=== PATIENT | male | born 1945 | race Caucasian/White ===

== ENCOUNTER 2020-03-21 10:43 | Outpatient (REF) | payer MEDICARE, SELFPAY ==
[2020-03-21 14:11] LABS: MANUAL DIFF FLAG NO
[2020-03-21 14:24] LABS: Basophils Absolute Auto 0.1 X10*3/uL (0.0-0.2); Basophils Percent Auto 1.5 % (0-2); Eosinophils Absolute Auto 0.8 X10*3/uL (0.0-0.4); Eosinophils Percent Auto 11.2 % (0-4); Hematocrit 40.5 % (42-52); Hemoglobin 13.6 g/dl (14.0-18.0); Imm Gran Abs Auto 0.03 X10*3/uL (0.00-0.03); Imm Gran Pct Auto 0.4 % (0.0-0.4); Lymphocytes Absolute Auto 1.2 X10*3/uL (1.2-4.9); Lymphocytes Percent Auto 17.9 % (20-40); Mean Corpuscular HGB Conc 33.6 g/dl (31.0-36.0); Mean Corpuscular Hemoglobin 31.8 pg (27.0-33.0); Mean Corpuscular Volume 94.6 fL (80-98); Monocytes Absolute Auto 0.8 X10*3/uL (0.1-1.2); Monocytes Percent Auto 11.4 % (2-11); Neutrophils Percent Auto 57.6 % (45-73); Platelet Count 204 X10*3/uL (160-400); Red Blood Count 4.28 X10*6/uL (4.60-5.80); Red Cell Distribution Width 13.2 % (11.0-16.0); White Blood Count 6.9 X10*3/uL (4.8-10.8)
[2020-03-21 14:47] LABS: Alanine Aminotransferase 14 U/L (0-40); Albumin Level 4.2 g/dL (3.5-5.0); Alkaline Phosphatase 71 U/L (39-117); Anion Gap 15 (12-20); Aspartate Amino Transferase 15 U/L (5-37); Bilirubin Total 0.4 mg/dL (0.0-1.0); Blood Urea Nitrogen 19 mg/dL (9-16); C Reactive Protein 0.93 mg/dL (< or = 0.50); Carbon Dioxide 24 mmol/L (22-29); Chloride 104 mmol/L (96-108); Estimated Glomerular Filt Rate > 60; Glucose Random 141 mg/dL (60-115); Potassium 4.6 mmol/l (3.3-5.1); Sodium 138 mmol/L (135-145); Total Protein 6.7 g/dL (6.5-8.0)
[2020-03-21 15:00] LABS: Uric Acid 9.2 mg/dL (3.4-7.0)
[2020-03-21 15:21] LABS: Creatinine Urine 14.81 mg/dL; Microalbum/Creatinine Ratio Ur 74.2 ug/mg cr
[2020-03-21 15:34] LABS: Estimated Average Glucose 148 mg/dL; Hemoglobin A1c % 6.8 %
== END 2020-03-21 10:44 | disposition home or self-care (01) ==
LOC: HO.10HDL 10:43
PROVIDERS: Visit Provider Internal Medicine
DX: J44.9 Chronic obstructive pulmonary disease, unspecified (principal); E11.22 Type 2 diabetes mellitus with diabetic chronic kidney disease; I12.9 Hypertensive chronic kidney disease with stage 1 through stage 4 chronic kidney disease, or unspecified chronic kidney disease; N18.9 Chronic kidney disease, unspecified; M10.9 Gout, unspecified
CPT/HCPCS: 36415; 80053; 82043; 83036; 84550; 85025; 86140

== ENCOUNTER 2020-03-24 09:28 | Outpatient (REF) | payer SELFPAY | END 2020-03-24 09:29 | disposition home or self-care (01) | LOC: HO.HAP 09:28 | PROVIDERS: PCP Internal Medicine; Referring Provider Internal Medicine; Visit Provider Internal Medicine | DX: Z13.89 Encounter for screening for other disorder (principal) | CPT/HCPCS: 92700 ==

== ENCOUNTER 2020-06-22 10:32 | Outpatient (REF) | payer MEDICARE, SELFPAY ==
[2020-06-22 13:37] LABS: MANUAL DIFF FLAG NO
[2020-06-22 13:45] LABS: Basophils Absolute Auto 0.1 X10*3/uL (0.0-0.2); Basophils Percent Auto 1.4 % (0-2); Eosinophils Absolute Auto 0.8 X10*3/uL (0.0-0.4); Eosinophils Percent Auto 10.6 % (0-4); Hematocrit 42.1 % (42-52); Hemoglobin 14.6 g/dl (14.0-18.0); Imm Gran Abs Auto 0.04 X10*3/uL (0.00-0.03); Imm Gran Pct Auto 0.5 % (0.0-0.4); Lymphocytes Absolute Auto 1.3 X10*3/uL (1.2-4.9); Mean Corpuscular HGB Conc 34.7 g/dl (31.0-36.0); Mean Corpuscular Hemoglobin 32.6 pg (27.0-33.0); Mean Platelet Volume 10.6 fL (9.4-12.4); Monocytes Absolute Auto 0.9 X10*3/uL (0.1-1.2); Monocytes Percent Auto 11.1 % (2-11); Neutrophils Absolute Auto 4.7 X10*3/uL (2.0-8.3); Neutrophils Percent Auto 59.4 % (45-73); Platelet Count 187 X10*3/uL (160-400); Red Blood Count 4.48 X10*6/uL (4.60-5.80); Red Cell Distribution Width 13.2 % (11.0-16.0); White Blood Count 7.8 X10*3/uL (4.8-10.8)
[2020-06-22 13:54] LABS: Estimated Average Glucose 160 mg/dL; Hemoglobin A1c % 7.2 %
[2020-06-22 14:14] LABS: Alanine Aminotransferase 16 U/L (0-40); Albumin Level 4.3 g/dL (3.5-5.0); Alkaline Phosphatase 66 U/L (39-117); Anion Gap 16 (12-20); Aspartate Amino Transferase 16 U/L (5-37); Bilirubin Total 0.6 mg/dL (0.0-1.0); Blood Urea Nitrogen 19 mg/dL (9-16); Calcium 9.5 mg/dL (8.4-10.2); Carbon Dioxide 27 mmol/L (22-29); Chloride 103 mmol/L (96-108); Estimated Glomerular Filt Rate 57; Glucose Random 175 mg/dL (60-115); Potassium 4.7 mmol/L (3.3-5.1); Sodium 141 mmol/L (135-145)
== END 2020-06-22 10:33 | disposition home or self-care (01) ==
LOC: HO.10HDL 10:32
PROVIDERS: Visit Provider Internal Medicine
DX: J44.9 Chronic obstructive pulmonary disease, unspecified (principal); I10 Essential (primary) hypertension; E11.9 Type 2 diabetes mellitus without complications
CPT/HCPCS: 36415; 80053; 83036; 85025

== ENCOUNTER → 2020-07-25 12:53 | Outpatient (BNVA) | payer MEDICARE, SELFPAY | PROVIDERS: PCP Internal Medicine; Visit Provider Nurse Practitioner Family | DX: I42.9 Cardiomyopathy, unspecified (principal); I10 Essential (primary) hypertension; E11.9 Type 2 diabetes mellitus without complications; Z95.0 Presence of cardiac pacemaker; Z79.899 Other long term (current) drug therapy | CPT/HCPCS: 99212 ==

== ENCOUNTER 2020-10-20 06:50 | Outpatient (REF) | payer MEDICARE, SELFPAY ==
[2020-10-20 11:15] LABS: MANUAL DIFF FLAG NO
[2020-10-20 11:26] LABS: Basophils Absolute Auto 0.1 X10*3/uL (0.0-0.2); Basophils Percent Auto 1.2 % (0-2); Eosinophils Absolute Auto 0.7 X10*3/uL (0.0-0.4); Eosinophils Percent Auto 8.7 % (0-4); Hematocrit 42.5 % (42-52); Hemoglobin 14.2 g/dl (14.0-18.0); Imm Gran Abs Auto 0.03 X10*3/uL (0.00-0.03); Imm Gran Pct Auto 0.4 % (0.0-0.4); Lymphocytes Absolute Auto 1.3 X10*3/uL (1.2-4.9); Lymphocytes Percent Auto 17.2 % (20-40); Mean Corpuscular HGB Conc 33.4 g/dl (31.0-36.0); Mean Corpuscular Hemoglobin 32.9 pg (27.0-33.0); Mean Corpuscular Volume 98.4 fL (80-98); Mean Platelet Volume 10.5 fL (9.4-12.4); Monocytes Absolute Auto 0.8 X10*3/uL (0.1-1.2); Monocytes Percent Auto 10.4 % (2-11); Neutrophils Absolute Auto 4.7 X10*3/uL (2.0-8.3); Neutrophils Percent Auto 62.1 % (45-73); Platelet Count 182 X10*3/uL (160-400); Red Blood Count 4.32 X10*6/uL (4.60-5.80); Red Cell Distribution Width 13.2 % (11.0-16.0); White Blood Count 7.5 X10*3/uL (4.8-10.8)
[2020-10-20 12:10] LABS: Glucose Urine UA NEG (NEG); Leukocyte Esterase Urine NEG (NEG); Nitrite Urine NEG (NEG); Specific Gravity - Urine <= 1.005 (1.005-1.025); Urine Blood NEG (NEG); Urine Ketones NEG (NEG); Urine Protein NEG (NEG-TRACE)
[2020-10-20 12:12] LABS: Appearance Urine CLEAR; Color Urine YELLOW
[2020-10-20 12:18] LABS: Alanine Aminotransferase 12 U/L (0-40); Albumin Level 4.1 g/dL (3.5-5.0); Alkaline Phosphatase 65 U/L (39-117); Anion Gap 16 (12-20); Aspartate Amino Transferase 20 U/L (5-37); Bilirubin Total 0.6 mg/dL (0.0-1.0); Blood Urea Nitrogen 20 mg/dL (9-16); Calcium 9.4 mg/dL (8.4-10.2); Carbon Dioxide 23 mmol/L (22-29); Chloride 103 mmol/L (96-108); Cholesterol 150 mg/dL; Estimated Glomerular Filt Rate > 60; Glucose Fasting 159 mg/dL (60-99); HDL Cholesterol 40 mg/dL; LDL Cholesterol Calculated 82 mg/dl; Potassium 4.6 mmol/L (3.3-5.1); Sodium 137 mmol/L (135-145); Total Protein 6.8 g/dL (6.5-8.0); Triglycerides 142 mg/dL
[2020-10-20 12:24] LABS: Estimated Average Glucose 160 mg/dL; Hemoglobin A1c % 7.2 %
[2020-10-20 12:33] LABS: Creatinine Urine 36.64 mg/dL; Microalbum/Creatinine Ratio Ur 158.2 ug/mg cr
[2020-10-20 12:39] LABS: PSA,Total (Free>4and<10) 0.22 ng/mL (0.00-4.00)
== END 2020-10-20 06:51 | disposition home or self-care (01) ==
LOC: HO.HMGCLDS 06:50
PROVIDERS: PCP Internal Medicine; Visit Provider Internal Medicine
DX: J44.9 Chronic obstructive pulmonary disease, unspecified (principal); E11.22 Type 2 diabetes mellitus with diabetic chronic kidney disease; N18.9 Chronic kidney disease, unspecified; Z85.46 Personal history of malignant neoplasm of prostate; Z12.5 Encounter for screening for malignant neoplasm of prostate
CPT/HCPCS: 36415; 80053; 80061; 81003; 82043; 83036; 84153; 85025

== ENCOUNTER 2021-01-24 09:06 | Outpatient (REF) | payer SELFPAY ==
--- NOTE | 2021-01-24 09:29 | MHC.AU.P13 ---
Hearing Instrument Problem Date of Visit: 01/24/21 Left Ear: Litigation Attorney Associate: Phonak Model: Orugga Q 50-P Serial Number: [id number] Repair Warranty: Battery Size: 13 Color: Silver Mireles Tubing: #2 Slim tube Type of Dome: Medium Power Dispensed By: [facility] Date of Fittin11/11/2012 Follow-Up Summary: Patient brought in left aid - broken slim tube. Cleaned hearing aids and replaced #2 left slim tube and medium power dome - amplifying clearly. Recommendations: Recommendations: Hearing instrument follow-up or maintenance as needed. Diagnosis Code(s): Primary Diagnosis: H90.3 Bilateral Sensorineural Hearing Loss Signature: Provider: ZHANNA Sorto-
== END 2021-01-24 09:07 | disposition home or self-care (01) ==
LOC: HO.HAP 09:06
PROVIDERS: Visit Provider Internal Medicine
DX: Z46.1 Encounter for fitting and adjustment of hearing aid (principal); H90.3 Sensorineural hearing loss, bilateral
CPT/HCPCS: 99499

== ENCOUNTER → 2021-01-30 12:08 | Outpatient (BNVA) | payer MEDICARE, SELFPAY | PROVIDERS: PCP Internal Medicine; Referring Provider Internal Medicine; Visit Provider Internal Medicine | DX: I42.9 Cardiomyopathy, unspecified (principal); I44.2 Atrioventricular block, complete; I10 Essential (primary) hypertension; E11.9 Type 2 diabetes mellitus without complications; Z45.018 Encounter for adjustment and management of other part of cardiac pacemaker; Z79.84 Long term (current) use of oral hypoglycemic drugs; Z79.899 Other long term (current) drug therapy | CPT/HCPCS: 93005; 99212 ==

== ENCOUNTER 2021-07-20 07:14 | Outpatient (REF) | payer MEDICARE, SELFPAY ==
[2021-07-20 11:35] LABS: MANUAL DIFF FLAG NO
[2021-07-20 11:48] LABS: Basophils Absolute Auto 0.1 X10*3/uL (0.0-0.2); Basophils Percent Auto 1.2 % (0-2); Eosinophils Absolute Auto 0.5 X10*3/uL (0.0-0.4); Hematocrit 41.5 % (42.0-52.0); Hemoglobin 14.2 g/dl (14.0-18.0); Imm Gran Abs Auto 0.04 X10*3/uL (0.00-0.03); Imm Gran Pct Auto 0.6 % (0.0-0.4); Lymphocytes Percent Auto 14.4 % (20-40); Mean Corpuscular HGB Conc 34.2 g/dl (31.0-36.0); Mean Corpuscular Hemoglobin 33.7 pg (27.0-33.0); Mean Corpuscular Volume 98.6 fL (80.0-98.0); Mean Platelet Volume 10.3 fL (9.4-12.4); Monocytes Absolute Auto 0.8 X10*3/uL (0.1-1.2); Monocytes Percent Auto 11.3 % (2-11); Neutrophils Absolute Auto 4.7 x10*3/uL (2.0-8.3); Neutrophils Percent Auto 65.5 % (45-73); Platelet Count 155 X10*3/uL (160-400); Red Blood Count 4.21 X10*6/uL (4.60-5.80); Red Cell Distribution Width 13.2 % (11.0-16.0); White Blood Count 7.2 X10*3/uL (4.8-10.8)
[2021-07-20 11:58] LABS: Estimated Average Glucose 160 mg/dL; Hemoglobin A1c % 7.2 %
[2021-07-20 12:13] LABS: Alanine Aminotransferase 24 U/L (0-40); Alkaline Phosphatase 57 U/L (39-117); Anion Gap 13 (12-20); Aspartate Amino Transferase 26 U/L (5-37); Bilirubin Total 0.6 mg/dL (0.0-1.0); Blood Urea Nitrogen 15 mg/dL (9-16); Calcium 9.7 mg/dL (8.4-10.2); Carbon Dioxide 25 mmol/L (22-29); Chloride 103 mmol/L (96-108); Estimated Glomerular Filt Rate > 60; Glucose Random 167 mg/dL (60-115); Potassium 4.7 mmol/L (3.3-5.1); Sodium 136 mmol/L (135-145); Total Protein 6.8 g/dL (6.5-8.0)
[2021-07-20 12:24] LABS: Creatinine Urine 37.75 mg/dL; Microalbum/Creatinine Ratio Ur 156.2 ug/mg cr
== END 2021-07-20 07:15 | disposition home or self-care (01) ==
LOC: HO.HMGCLDS 07:14
PROVIDERS: Visit Provider Internal Medicine
DX: E11.9 Type 2 diabetes mellitus without complications (principal); I10 Essential (primary) hypertension; J44.9 Chronic obstructive pulmonary disease, unspecified
CPT/HCPCS: 36415; 80053; 82043; 83036; 85025

== ENCOUNTER 2021-09-08 09:13 | Outpatient (REF) | payer MEDICARE, SELFPAY ==
--- NOTE | ~2021-09-08 | XR_ITS ---
EXAMINATION: XR knee RT 2V CLINICAL INFORMATION: Pain COMPARISON: None TECHNIQUE: 2 views of the knee XR/XR knee RT 2V FINDINGS/IMPRESSION: No acute fracture or dislocation. Joint spaces are maintained. Trace suprapatellar joint effusion. Soft tissues are unremarkable.
== END 2021-09-08 09:14 | disposition home or self-care (01) ==
LOC: HO.HMGCX 09:13
PROVIDERS: PCP Internal Medicine; Visit Provider Nurse Practitioner Acute Care
DX: M25.561 Pain in right knee (principal)
CPT/HCPCS: 73560

== ENCOUNTER 2021-09-14 08:46 | Outpatient (REF) | payer SELFPAY | END 2021-09-14 08:47 | disposition home or self-care (01) | LOC: HO.HAP 08:46 | PROVIDERS: Visit Provider Internal Medicine | DX: Z46.1 Encounter for fitting and adjustment of hearing aid (principal); H90.3 Sensorineural hearing loss, bilateral | CPT/HCPCS: V5267 ==

== ENCOUNTER 2021-10-24 06:20 | Outpatient (REF) | payer MEDICARE, SELFPAY ==
[2021-10-24 11:43] LABS: MANUAL DIFF FLAG NO
[2021-10-24 11:51] LABS: Basophils Absolute Auto 0.1 X10*3/uL (0.0-0.2); Basophils Percent Auto 1.1 % (0-2); Eosinophils Absolute Auto 0.6 X10*3/uL (0.0-0.4); Eosinophils Percent Auto 9.3 % (0-4); Hematocrit 38.9 % (42.0-52.0); Hemoglobin 13.3 g/dl (14.0-18.0); Imm Gran Abs Auto 0.04 X10*3/uL (0.00-0.03); Imm Gran Pct Auto 0.6 % (0.0-0.4); Lymphocytes Absolute Auto 1.1 X10*3/uL (1.2-4.9); Lymphocytes Percent Auto 16.6 % (20-40); Mean Corpuscular HGB Conc 34.2 g/dl (31.0-36.0); Mean Corpuscular Volume 99.5 fL (80.0-98.0); Mean Platelet Volume 10.5 fL (9.4-12.4); Monocytes Absolute Auto 0.8 X10*3/uL (0.1-1.2); Monocytes Percent Auto 12.7 % (2-11); Neutrophils Absolute Auto 3.8 x10*3/uL (2.0-8.3); Neutrophils Percent Auto 59.7 % (45-73); Platelet Count 182 X10*3/uL (160-400); Red Blood Count 3.91 X10*6/uL (4.60-5.80); Red Cell Distribution Width 13.4 % (11.0-16.0); White Blood Count 6.3 X10*3/uL (4.8-10.8)
[2021-10-24 11:57] LABS: Estimated Average Glucose 140 mg/dL; Hemoglobin A1c % 6.5 %
[2021-10-24 12:11] LABS: Alanine Aminotransferase 19 U/L (0-40); Alkaline Phosphatase 57 U/L (39-117); Anion Gap 11 (12-20); Aspartate Amino Transferase 19 U/L (5-37); Bilirubin Total 0.6 mg/dL (0.0-1.0); Blood Urea Nitrogen 18 mg/dL (9-16); Carbon Dioxide 27 mmol/L (22-29); Chloride 105 mmol/L (96-108); Cholesterol 143 mg/dL; Estimated Glomerular Filt Rate > 60; Glucose Fasting 146 mg/dL (60-99); HDL Cholesterol 39 mg/dL; LDL Cholesterol Calculated 74 mg/dl; Potassium 4.7 mmol/L (3.3-5.1); Sodium 138 mmol/L (135-145); Total Protein 6.7 g/dL (6.5-8.0); Triglycerides 153 mg/dL
[2021-10-24 12:40] LABS: Creatinine Urine 32.22 mg/dL; Microalbum/Creatinine Ratio Ur 176.9 ug/mg cr
== END 2021-10-24 06:21 | disposition home or self-care (01) ==
LOC: HO.HMGCLDS 06:20
PROVIDERS: Visit Provider Internal Medicine
DX: E11.9 Type 2 diabetes mellitus without complications (principal); I10 Essential (primary) hypertension; J44.9 Chronic obstructive pulmonary disease, unspecified
CPT/HCPCS: 36415; 80053; 80061; 82043; 83036; 85025

== ENCOUNTER → 2022-01-29 12:21 | Outpatient (BNVA) | payer MEDICARE, SELFPAY | PROVIDERS: PCP Internal Medicine; Referring Provider Internal Medicine; Visit Provider Internal Medicine | DX: Z45.018 Encounter for adjustment and management of other part of cardiac pacemaker (principal); I42.9 Cardiomyopathy, unspecified; I10 Essential (primary) hypertension | CPT/HCPCS: 93005; 93280 ==

== ENCOUNTER 2022-03-09 11:53 | Outpatient (REF) | payer MEDICARE, SELFPAY ==
[2022-03-09 14:07] LABS: Estimated Average Glucose 137 mg/dL; Hemoglobin A1c % 6.4 %
[2022-03-09 14:42] LABS: Alanine Aminotransferase 11 U/L (0-40); Albumin Level 4.3 g/dL (3.5-5.0); Alkaline Phosphatase 64 U/L (39-117); Anion Gap 20 (12-20); Aspartate Amino Transferase 21 U/L (5-37); Bilirubin Total 0.6 mg/dL (0.0-1.0); Blood Urea Nitrogen 18 mg/dL (9-16); Calcium 9.7 mg/dL (8.4-10.2); Carbon Dioxide 24 mmol/L (22-29); Chloride 100 mmol/L (96-108); Estimated Glomerular Filt Rate > 60; Glucose Random 132 mg/dL (60-115); Potassium 4.6 mmol/L (3.3-5.1); Sodium 139 mmol/L (135-145); Total Protein 7.2 g/dL (6.5-8.0)
== END 2022-03-09 11:54 | disposition home or self-care (01) ==
LOC: HO.10HDL 11:53
PROVIDERS: Visit Provider Internal Medicine
DX: E11.9 Type 2 diabetes mellitus without complications (principal); I10 Essential (primary) hypertension; J44.9 Chronic obstructive pulmonary disease, unspecified
CPT/HCPCS: 36415; 80053; 83036

== ENCOUNTER 2022-09-04 12:41 | Outpatient (REF) | payer MEDICARE, SELFPAY ==
[2022-09-04 13:58] LABS: MANUAL DIFF FLAG NO
[2022-09-04 14:07] LABS: Basophils Absolute Auto 0.1 X10*3/uL (0.0-0.2); Basophils Percent Auto 1.2 % (0-2); Eosinophils Absolute Auto 0.5 X10*3/uL (0.0-0.4); Eosinophils Percent Auto 6.8 % (0-4); Hematocrit 38.7 % (42.0-52.0); Hemoglobin 13.2 g/dl (14.0-18.0); Imm Gran Abs Auto 0.04 X10*3/uL (0.00-0.03); Imm Gran Pct Auto 0.5 % (0.0-0.4); Lymphocytes Absolute Auto 1.1 X10*3/uL (1.2-4.9); Lymphocytes Percent Auto 13.7 % (20-40); Mean Corpuscular HGB Conc 34.1 g/dl (31.0-36.0); Mean Corpuscular Hemoglobin 32.8 pg (27.0-33.0); Mean Platelet Volume 10.5 fL (9.4-12.4); Monocytes Absolute Auto 0.8 X10*3/uL (0.1-1.2); Neutrophils Absolute Auto 5.3 x10*3/uL (2.0-8.3); Neutrophils Percent Auto 67.8 % (45-73); Platelet Count 221 X10*3/uL (160-400); Red Blood Count 4.03 X10*6/uL (4.60-5.80); Red Cell Distribution Width 13.6 % (11.0-16.0); White Blood Count 7.8 X10*3/uL (4.8-10.8)
[2022-09-04 14:34] LABS: Alanine Aminotransferase 12 U/L (0-40); Albumin Level 4.1 g/dL (3.5-5.0); Alkaline Phosphatase 62 U/L (39-117); Anion Gap 14 (12-20); Aspartate Amino Transferase 15 U/L (5-37); Bilirubin Total 0.6 mg/dL (0.0-1.0); Blood Urea Nitrogen 19 mg/dL (9-16); Calcium 9.5 mg/dL (8.4-10.2); Carbon Dioxide 29 mmol/L (22-29); Chloride 103 mmol/L (96-108); Estimated Glomerular Filt Rate > 60; Glucose Random 195 mg/dL (60-115); Potassium 4.5 mmol/L (3.3-5.1); Sodium 141 mmol/L (135-145); Total Protein 6.6 g/dL (6.5-8.0)
[2022-09-04 14:57] LABS: Estimated Average Glucose 137 mg/dL; Hemoglobin A1c % 6.4 %
[2022-09-04 16:22] LABS: Creatinine Urine 25.84 mg/dL; Microalbum/Creatinine Ratio Ur 150.9 ug/mg cr
== END 2022-09-04 12:42 | disposition home or self-care (01) ==
LOC: HO.HMGCLDS 12:41
PROVIDERS: PCP Internal Medicine; Visit Provider Internal Medicine
DX: E11.9 Type 2 diabetes mellitus without complications (principal); J44.9 Chronic obstructive pulmonary disease, unspecified; I10 Essential (primary) hypertension
CPT/HCPCS: 36415; 80053; 82043; 83036; 85025

== ENCOUNTER 2022-12-18 10:33 | Outpatient (AMB) | payer MEDICARE, SELFPAY ==
--- NOTE | 2022-12-18 10:38 | MHC.OFFVIS ---
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 Patient reports ongoing pain for a week. He states that his pain has improved as the days go on. Patient reports his pain is on the whole knee and it stays in that area. Pain is worse when using the stairs. He denies any fevers or chills. He has not had a cortisone injection. He takes Tylenol which gives him fairly good relief. He denies any locking or giving way. Allergies No Known Allergies [No Known Allergies*] Allergy (Verified 12/18/22 10:41) Medication List - Last Reconciled 12/18/22 by Sami Mcdowell MD carvedilol One and half tablet orally 2 times a day; 90 days furosemide 20 mg PO DAILY lisinopril 40 mg PO DAILY metformin 500 mg PO DAILY [facility] Medical History Cardiomyopathy Diabetes HTN (hypertension) Pacemaker Surgical History History of permanent cardiac pacemaker placement Family History Mother Father Social History Patient Tobacco Use Status: Former Tobacco user Years Smoked: >10 yr Physical Exam Vital Signs: BMI result Body Mass Index 28.4 Const Other: Well-nourished well-developed very friendly male awake alert and oriented x3 in no acute distress Extrem Other: Bilateral lower extremity examination shows good capillary refill, no skin lesions noted, normal sensation light touch Left knee examination shows a mild effusion, palpable crepitus with range of motion, mild pain with range of motion, negative Susan's test, no instability Results Reviewed Results Reviewed: X-rays of the patient's left knee taken previously show joint space narrowing, no acute bony abnormalities Assessment & Plan Assessment & Plan (1) Arthritis of left knee: Code(s): M17.12 - Unilateral primary osteoarthritis, left knee Plan Mr. Chadwick presents with left knee pain due to degenerative joint disease. I had a lengthy discussion with the patient regarding the treatment options. At this point his symptoms seem to be improving on their own. Activity modifications were discussed at length with the patient. The patient wishes to hold off on a cortisone injection for now. He will follow up with me on an as-needed basis should his symptoms not plateau at an acceptable level over the next few weeks. Feel free to call me at any time should questions regarding his orthopedic management arise. Thank you very much for asking me to see this very friendly gentleman. Coding Level of Care Code New Pt Level 2 (87927) Diagnoses Arthritis of left knee M17.12
[2022-12-18 10:43] VITALS: BMI 28.4
== END 2022-12-18 11:17 | disposition home or self-care (01) ==
PROVIDERS: PCP Internal Medicine; Visit Provider Orthopaedic Surgery
DX: M17.12 Unilateral primary osteoarthritis, left knee (principal)
CPT/HCPCS: 99202

== ENCOUNTER → 2022-12-18 10:33 | Outpatient (BNVA) | payer MEDICARE, SELFPAY | PROVIDERS: PCP Internal Medicine; Visit Provider Orthopaedic Surgery | DX: M17.12 Unilateral primary osteoarthritis, left knee (principal) | CPT/HCPCS: 99202 ==

== ENCOUNTER 2022-12-31 06:20 | Outpatient (REF) | payer MEDICARE, SELFPAY ==
[2022-12-31 11:50] LABS: MANUAL DIFF FLAG NO
[2022-12-31 11:59] LABS: Basophils Absolute Auto 0.1 X10*3/uL (0.0-0.2); Basophils Percent Auto 1.1 % (0-2); Eosinophils Absolute Auto 0.5 X10*3/uL (0.0-0.4); Eosinophils Percent Auto 6.1 % (0-4); Hemoglobin 13.3 g/dl (14.0-18.0); Imm Gran Abs Auto 0.04 X10*3/uL (0.00-0.03); Imm Gran Pct Auto 0.5 % (0.0-0.4); Lymphocytes Absolute Auto 0.8 X10*3/uL (1.2-4.9); Lymphocytes Percent Auto 10.3 % (20-40); Mean Corpuscular HGB Conc 34.1 g/dl (31.0-36.0); Mean Corpuscular Hemoglobin 33.8 pg (27.0-33.0); Mean Corpuscular Volume 99.2 fL (80.0-98.0); Mean Platelet Volume 10.3 fL (9.4-12.4); Monocytes Absolute Auto 0.9 X10*3/uL (0.1-1.2); Monocytes Percent Auto 11.1 % (2-11); Neutrophils Absolute Auto 5.7 x10*3/uL (2.0-8.3); Neutrophils Percent Auto 70.9 % (45-73); Platelet Count 199 X10*3/uL (160-400); Red Blood Count 3.93 X10*6/uL (4.60-5.80); Red Cell Distribution Width 13.5 % (11.0-16.0)
[2022-12-31 12:10] LABS: Estimated Average Glucose 126 mg/dL
[2022-12-31 12:15] LABS: Alanine Aminotransferase 14 U/L (0-40); Albumin Level 4.1 g/dL (3.5-5.0); Alkaline Phosphatase 57 U/L (39-117); Anion Gap 12 (12-20); Aspartate Amino Transferase 19 U/L (5-37); Bilirubin Total 0.7 mg/dL (0.0-1.0); Blood Urea Nitrogen 19 mg/dL (9-16); Calcium 10.3 mg/dL (8.4-10.2); Carbon Dioxide 24 mmol/L (22-29); Chloride 106 mmol/L (96-108); Cholesterol 140 mg/dL (<200); Estimated Glomerular Filt Rate > 60; Glucose Fasting 162 mg/dL (60-99); HDL Cholesterol 41 mg/dL (>40); LDL Cholesterol Calculated 74 mg/dL (<100); Potassium 4.4 mmol/L (3.3-5.1); Sodium 138 mmol/L (135-145); Total Protein 7.3 g/dL (6.5-8.0); Triglycerides 127 mg/dL (<150)
[2022-12-31 12:54] LABS: Creatinine Urine 43.69 mg/dL; Microalbum/Creatinine Ratio Ur 247.1 ug/mg cr (<30)
== END 2022-12-31 06:21 | disposition home or self-care (01) ==
LOC: HO.HMGCLDS 06:20
PROVIDERS: PCP Internal Medicine; Visit Provider Internal Medicine
DX: J44.9 Chronic obstructive pulmonary disease, unspecified (principal); I10 Essential (primary) hypertension; E11.9 Type 2 diabetes mellitus without complications; R53.83 Other fatigue
CPT/HCPCS: 36415; 80053; 80061; 82043; 83036; 85025

== ENCOUNTER → 2023-01-14 23:59 | Outpatient (BNV) | payer MEDICARE, SELFPAY ==
--- NOTE | 2023-01-17 16:01 | MHC.OFFVIS ---
Intake Intake Visit Reasons: Remote Device Check- [employer] Allergies No Known Allergies [No Known Allergies*] Allergy (Verified 12/18/22 10:41) PFSH Medical History Cardiomyopathy Diabetes HTN (hypertension) Pacemaker Surgical History History of permanent cardiac pacemaker placement Family History Mother Father Social History Patient Tobacco Use Status: Former Tobacco user Years Smoked: >10 yr Office Procedures Cardiac Device Check Cardiac Device Check Details: Date of service- 01/14/2023 ; Battery life 10months; normal lead parameters; AP 70%; LEASE ADMINISTRATOR 100%; no significant arrhythmias. Overall normal device function. [id number] Cardiac Device Interrogation, pacemaker Procedure code (CPT) selection complete Assessment & Plan Assessment & Plan (1) Cardiomyopathy: Code(s): I42.9 - Cardiomyopathy, unspecified Qualifiers: Cardiomyopathy type: unspecified Qualified Code(s): I42.9 - Cardiomyopathy, unspecified Coding Level of Care Code Procedure Only Diagnoses Cardiomyopathy, unspecified type I42.9 Cardiomyopathy type: unspecified CPT Codes Cardiac Device Check - Cardiac Device 12: [id number] Cardiac Device Interrogation, pacemaker ([id number])
== END ==
PROVIDERS: PCP Internal Medicine; Visit Provider Internal Medicine
DX: I42.9 Cardiomyopathy, unspecified (principal); Z95.0 Presence of cardiac pacemaker
CPT/HCPCS: 93294

== ENCOUNTER → 2023-01-16 07:56 | Outpatient (REF) | payer MEDICARE, SELFPAY ==
--- NOTE | 2023-01-16 07:59 | CA_ITS ---
Transthoracic Echocardiogram Patient (Last, First, Middle): Eitan Chadwick R Gender: Male Date of : 1945 Age: 77 Procedure Date: 01/16/2023 Procedure Type: Transthoracic Echocardiogram Location: OP Height: 167.64 cm Weight: 77.57 kg BSA: 1.87 m2 Heart Rate: bpm BP: 130 / 60 mmHg Php Mysql Web Developer: TO Referring MD: Dimitri Felix MD Educational Technician: Adama Short MD Symptoms: I42.9 - Cardiomyopathy, unspecified Study Quality: Fair/no iv access ECG Rhythm: Sinus Conclusions: - 1. Low normal LV ejection fraction of 50-55% impaired relaxation filling pattern and elevated filling pressures 2. Mild mitral regurgitation 3. Normal RV systolic pressure 4. No gross pericardial effusion Findings Left Ventricle Normal left ventricular cavity size. There is normal left ventricular wall thickness. The left ventricular systolic function is low normal. The visually estimated ejection fraction is between 50-55%. Regional wall motion abnormalities can not be excluded due to suboptimal endocardial definition. Spectral Doppler is indicative of an impaired relaxation filling pattern. Elevated filling pressures. Right Ventricle Normal right ventricular cavity size and systolic function. Atria The left atrium is likely dilated. Interatrial shunt cannot be excluded. The right atrium is normal in size. Aortic Valve There is mild calcification of the aortic valve. There is no aortic valve stenosis. There is no aortic valve regurgitation. Mitral Valve Likely normal mitral valve structure and function. There is mild mitral valve regurgitation. There is no mitral valve stenosis. Pulmonic Valve The pulmonic valve is likely normal. Tricuspid Valve Normal tricuspid valve structure. There is trace tricuspid valve regurgitation. The right ventricular systolic pressure is normal. The right ventricular systolic pressure is 25 mmHg. Normal right atrial pressure. There is no evidence of pulmonary hypertension. Great Vessels All visible segments of the aorta are normal in size. The pulmonary artery was not well visualized. Venous The inferior vena cava is normal in size and collapses greater than 50% with inspiration. Pericardium/Pleural There is no evidence of pericardial effusion. Prior Study Comparison No significant change compared to prior study dated: 01/26/2020. Measurements 2D Linear Measurements IVSd: 1.30 0.6-0.9/0.6-1.0 cm LVIDd: 4.90 3.9-5.3/4.2-5.9 cm LVIDd Index: 2.62 2.4-3.2/2.2-3.1 cm/m2 LVIDs: 2.80 2.0-3.6 cm LVPWd: 0.80 0.7-1.1 cm LA Diam: 3.50 2.7-3.8/3.0-4.0 cm LAIDs Index: 1.87 1.5-2.3 cm/m2 LV Mass: 234.37 67-162/88-224 g LV Mass Index: 125.33 43-95/49-115 g/m2 LVOT Diam: 2.10 3.0+(-)1.3 cm Mitral Valve MV Pk E: 0.90 MV PK A: 0.84 MV Decel Time: 227.00 E/A: 1.10 E'Lateral: 5.00 E'Medial: 5.33 E/E' Med: 17.00 E/E' Lat: 18.10 PHT: 56.00 MVA PHT: 3.93 Decel [place]: 4.84 Aortic Valve AoV Pk Russ: 1.29 AoV Mn Russ: 0.96 AoV VTI: 0.33 AoV Pk Grad: 7.00 Aov Mn Grad: 4.00 SOUTH Cont.VTI: 1.70 LVOT LVOT Pk Russ: 0.71 LVOT Mn Russ: 0.50 LVOT VTI: 0.16 LVOT Pk Grad: 2.00 LVOT Mn Grad: 1.00 LVOT Diam: 2.10 LVOT Area: 3.46 Diastolic Function MV Pk E: 0.90 MV Pk A: 0.84 E/A: 1.10 E'Medial: 5.33 E/E' Med: 17.00 E' Laterial: 5.00 E/E' Lat: 18.10 Right Ventricle TAPSE (mm): 23.40 TVS' Russ: 12.90 Tricuspid Valve TR Pk Russ: 2.33 TR Pk Grad: 22.00 RA Press: 3.00 RVSP: 25.00 Great Vessels Aorta Sinus of Valsalva: 3.00 2.0-3.5 cm Ao Asc: 3.00 2.1-3.4 cm Updated in Other Vendor System with Status of Final Adama Short MD electronically signed on 01/16/2023 3:09:35 PM with status of Final
== END ==
LOC: HO.CARD 07:56
PROVIDERS: PCP Internal Medicine; Visit Provider Internal Medicine
DX: I42.9 Cardiomyopathy, unspecified (principal)
CPT/HCPCS: 93306

== ENCOUNTER → 2023-01-16 07:59 | Outpatient (BNV) | payer MEDICARE, SELFPAY | PROVIDERS: PCP Internal Medicine; Visit Provider Internal Medicine Cardiovascular Disease | DX: I34.0 Nonrheumatic mitral (valve) insufficiency (principal) | CPT/HCPCS: 93306 ==

== ENCOUNTER 2023-01-28 12:18 | Outpatient (AMB) | payer MEDICARE, SELFPAY ==
[2023-01-28 12:40] VITALS: BP 120/60; PULSE 61
--- NOTE | 2023-01-28 12:40 | MHC.OFFVIS ---
Intake Vital Signs 01/28/23 12:40 Height 5 ft 6 in BMI Reason not done Patient refused/unable BP 120/60 Blood Pressure Location Lt brachial Position Sitting Pulse 61 Intake Visit Reasons: 1 yr f/u after echo/pacer check Intake Note: 1 year follow up w/ device check and EKG Livestock Counter Required: No Accompanied by: Spouse Allergies No Known Allergies [No Known Allergies*] Allergy (Verified 01/28/23 12:53) Medication List - Last Reconciled 01/28/23 by Dimitri Felix MD carvedilol One and half tablet orally 2 times a day; 90 days furosemide 20 mg PO DAILY lisinopril 40 mg PO DAILY metformin 500 mg PO DAILY HPI HPI Comments History of Present Illness Details Eitan returns for follow-up regarding his pacemaker. History of complete heart block around 2014. Then received a dual-chamber pacemaker. Otherwise, no known coronary disease, myocardial infarction or any other cardiac issues. He is a diabetic on metformin. Also on Coreg/lisinopril for hypertension. Overall, feels fine. No new complaints. No angina. Chronic shortness of breath that is unchanged. [facility] Medical History Cardiomyopathy Diabetes HTN (hypertension) Pacemaker Surgical History History of permanent cardiac pacemaker placement Family History Mother Father Social History Patient Tobacco Use Status: Former Tobacco user Years Smoked: >10 yr Review of Systems Const Denies weakness ENT Denies dizziness Card Denies chest pain, Denies chest pain with activity, Denies syncope, Denies rapid heart rate, Denies pedal edema, Denies edema, Denies leg edema, Denies lightheadedness, Denies palpitations, Denies dyspnea, Denies dyspnea on exertion and Denies orthopnea Resp Denies cough, Denies dyspnea and Denies dyspnea on exertion GI Denies hematochezia and Denies change in stool character Musc Denies abnormal gait, Denies muscle cramps, Denies muscle weakness, Denies numbness, Denies radiating pain into limb and Denies tingling Neuro Denies abnormal gait, Denies dizziness, Denies syncope, Denies numbness, Denies tingling and Denies weakness Endo Denies palpitations Physical Exam Vital Signs: Last Vital Signs Pulse 61 01/28/23 12:40 BP 120/60 01/28/23 12:40 Const General: comfortable and no acute distress Orientation/consciousness: patient oriented x3 HEENT Other: Unremarkable Head: Yes normal to inspection Neck Neck: Yes normal visual inspection Chest Chest palpation & inspection: normal inspection of the chest Resp Auscultation: diminished lung sounds Cardio Palpation: normal PMI Heart sounds: S1 normal heart sound present, S2 normal heart sound present, no gallops, no murmurs and no rubs GI Palpation (GI): Soft to palpation Back/Spine/Pelvis Other: unremarkable Skin General skin exam: no rashes or lesions noted Neuro General: patient oriented x3 Extrem General: Yes normal to inspection Psych Mental Status: mental status grossly normal Office Procedures Cardiac Device Check Cardiac Device Check Details: Pacemaker interrogated today. Dual-chamber device, programmed in DDDR mode. Battery status 7 months. Normal lead parameters. Atrial pacing 71%. Ventricular pacing 100%. 2 short NSVT episodes, 4 beats in 6 beats. Otherwise, normal device function. [id number] Cardiac Device Check, pacemaker dual lead Procedure code (CPT) selection complete EKG Details: EKG with AV dual paced rhythm. 61/Min. [id number]-[id number], Complete Assessment & Plan Assessment & Plan (1) Cardiomyopathy: Code(s): I42.9 - Cardiomyopathy, unspecified Qualifiers: Cardiomyopathy type: unspecified Qualified Code(s): I42.9 - Cardiomyopathy, unspecified Plan: In the most recent echocardiogram, LVEF 50-55%. It has been about 40% in the past. Could be from pacing induced. Previously, perfusion imaging was unremarkable. Clinically, he has got absolutely no angina. No symptoms or signs of congestive heart failure. (2) Essential hypertension: Code(s): I10 - Essential (primary) hypertension Plan: Stable. Remains on Coreg, lisinopril. Coding Level of Care Code Est Pt Level 4 (81551) Diagnoses Cardiomyopathy, unspecified type I42.9 Cardiomyopathy type: unspecified Essential hypertension I10 CPT Codes Cardiac Device Check - Cardiac Device 2: [id number]-YO Cardiac Device Check, pacemaker dual lead ([id number]) EKG - CPT: 43896-Xruygryujhocrrlhi, Complete ([id number])
== END 2023-01-28 13:14 | disposition home or self-care (01) ==
PROVIDERS: PCP Internal Medicine; Referring Provider Internal Medicine; Visit Provider Internal Medicine
DX: I42.9 Cardiomyopathy, unspecified (principal); I10 Essential (primary) hypertension; Z95.0 Presence of cardiac pacemaker; R94.31 Abnormal electrocardiogram [ECG] [EKG]
CPT/HCPCS: 93280; 99214

== ENCOUNTER → 2023-01-28 12:18 | Outpatient (BNVA) | payer MEDICARE, SELFPAY | PROVIDERS: PCP Internal Medicine; Referring Provider Internal Medicine; Visit Provider Internal Medicine | DX: I42.9 Cardiomyopathy, unspecified (principal); I10 Essential (primary) hypertension; Z45.018 Encounter for adjustment and management of other part of cardiac pacemaker | CPT/HCPCS: 93005; 93280; 99212 ==

== ENCOUNTER 2023-03-21 09:35 | Outpatient (REF) | payer MEDICARE, SELFPAY ==
[2023-03-21 10:52] LABS: MANUAL DIFF FLAG NO
[2023-03-21 11:00] LABS: Basophils Absolute Auto 0.1 X10*3/uL (0.0-0.2); Basophils Percent Auto 1.1 % (0-2); Eosinophils Absolute Auto 0.4 X10*3/uL (0.0-0.4); Hematocrit 38.1 % (42.0-52.0); Hemoglobin 13.4 g/dl (14.0-18.0); Imm Gran Abs Auto 0.03 X10*3/uL (0.00-0.03); Imm Gran Pct Auto 0.4 % (0.0-0.4); Lymphocytes Absolute Auto 0.9 X10*3/uL (1.2-4.9); Lymphocytes Percent Auto 11.1 % (20-40); Mean Corpuscular HGB Conc 35.2 g/dl (31.0-36.0); Mean Corpuscular Volume 93.8 fL (80.0-98.0); Mean Platelet Volume 10.3 fL (9.4-12.4); Monocytes Absolute Auto 0.7 X10*3/uL (0.1-1.2); Monocytes Percent Auto 8.3 % (2-11); Neutrophils Absolute Auto 5.8 x10*3/uL (2.0-8.3); Neutrophils Percent Auto 74.1 % (45-73); Platelet Count 214 X10*3/uL (160-400); Red Blood Count 4.06 X10*6/uL (4.60-5.80); Red Cell Distribution Width 12.9 % (11.0-16.0); White Blood Count 7.8 X10*3/uL (4.8-10.8)
[2023-03-21 11:11] LABS: Anion Gap 12 (12-20); Blood Urea Nitrogen 14 mg/dL (9-16); Calcium 9.6 mg/dL (8.4-10.2); Carbon Dioxide 28 mmol/L (22-29); Chloride 104 mmol/L (96-108); Estimated Glomerular Filt Rate > 60; Glucose Random 188 mg/dL (60-115); Iron 54 mcg/dL (45-160); Percent Iron Saturation 22 % (15-50); Potassium 3.6 mmol/L (3.3-5.1); Sodium 140 mmol/L (135-145); Total Iron Binding Capacity 247 mcg/dL (228-428); Unsaturated Iron Binding 193 ug/dL
[2023-03-21 11:18] LABS: Estimated Average Glucose 131 mg/dL; Hemoglobin A1c % 6.2 % (<6.0)
== END 2023-03-21 09:36 | disposition home or self-care (01) ==
LOC: HO.10HDL 09:35
PROVIDERS: Visit Provider Internal Medicine
DX: D64.9 Anemia, unspecified (principal); J44.9 Chronic obstructive pulmonary disease, unspecified; E11.9 Type 2 diabetes mellitus without complications
CPT/HCPCS: 36415; 80048; 83036; 83540; 85025

== ENCOUNTER → 2023-04-17 23:59 | Outpatient (BNV) | payer MEDICARE, SELFPAY ==
--- NOTE | 2023-04-21 18:32 | MHC.OFFVIS ---
Intake Intake Visit Reasons: Remote Device Check- [employer] Allergies No Known Allergies [No Known Allergies*] Allergy (Verified 01/28/23 12:53) PFSH Medical History Cardiomyopathy Diabetes HTN (hypertension) Pacemaker Surgical History History of permanent cardiac pacemaker placement Family History Mother Father Social History Patient Tobacco Use Status: Former Tobacco user Years Smoked: >10 yr Office Procedures Cardiac Device Check Cardiac Device Check Details: Date of service- 04/17/2023 ; Battery life <3 months; normal lead parameters; AP 72%; BARREL BANDER 98%; no significant arrhythmias. Overall normal device function. [id number] Cardiac Device Interrogation, pacemaker Procedure code (CPT) selection complete Assessment & Plan Assessment & Plan (1) Cardiomyopathy: Code(s): I42.9 - Cardiomyopathy, unspecified Qualifiers: Cardiomyopathy type: unspecified Qualified Code(s): I42.9 - Cardiomyopathy, unspecified (2) Encounter for interrogation of cardiac pacemaker: Code(s): Z45.018 - Encounter for adjustment and management of other part of cardiac pacemaker Plan x Coding Level of Care Code Procedure Only Diagnoses Cardiomyopathy, unspecified type I42.9 Cardiomyopathy type: unspecified Encounter for interrogation of cardiac pacemaker Z45.018 CPT Codes Cardiac Device Check - Cardiac Device 12: [id number] Cardiac Device Interrogation, pacemaker ([id number])
== END ==
PROVIDERS: PCP Internal Medicine; Visit Provider Internal Medicine
DX: I42.9 Cardiomyopathy, unspecified (principal); Z95.0 Presence of cardiac pacemaker
CPT/HCPCS: 93294

== ENCOUNTER 2023-07-03 10:02 | Outpatient (REF) | payer MEDICARE, SELFPAY ==
[2023-07-03 10:34] LABS: MANUAL DIFF FLAG NO
[2023-07-03 10:42] LABS: Basophils Absolute Auto 0.1 X10*3/uL (0.0-0.2); Basophils Percent Auto 1.5 % (0-2); Eosinophils Absolute Auto 0.7 X10*3/uL (0.0-0.4); Eosinophils Percent Auto 9.2 % (0-4); Hematocrit 40.1 % (42.0-52.0); Hemoglobin 13.7 g/dl (14.0-18.0); Imm Gran Abs Auto 0.04 X10*3/uL (0.00-0.03); Imm Gran Pct Auto 0.5 % (0.0-0.4); Lymphocytes Absolute Auto 1.1 X10*3/uL (1.2-4.9); Lymphocytes Percent Auto 13.2 % (20-40); Mean Corpuscular HGB Conc 34.2 g/dl (31.0-36.0); Mean Corpuscular Hemoglobin 32.2 pg (27.0-33.0); Mean Corpuscular Volume 94.4 fL (80.0-98.0); Mean Platelet Volume 10.2 fL (9.4-12.4); Monocytes Absolute Auto 0.9 X10*3/uL (0.1-1.2); Monocytes Percent Auto 10.8 % (2-11); Neutrophils Absolute Auto 5.1 x10*3/uL (2.0-8.3); Neutrophils Percent Auto 64.8 % (45-73); Platelet Count 209 X10*3/uL (160-400); Red Blood Count 4.25 X10*6/uL (4.60-5.80); Red Cell Distribution Width 13.9 % (11.0-16.0); White Blood Count 7.9 X10*3/uL (4.8-10.8)
[2023-07-03 10:46] LABS: Estimated Average Glucose 137 mg/dL; Hemoglobin A1c % 6.4 % (<6.0)
[2023-07-03 10:49] LABS: Alanine Aminotransferase 13 U/L (0-40); Albumin Level 4.2 g/dL (3.5-5.0); Alkaline Phosphatase 70 U/L (39-117); Anion Gap 13 (12-20); Aspartate Amino Transferase 18 U/L (5-37); Bilirubin Total 0.4 mg/dL (0.0-1.0); Blood Urea Nitrogen 21 mg/dL (9-16); Calcium 10.3 mg/dL (8.4-10.2); Carbon Dioxide 26 mmol/L (22-29); Chloride 104 mmol/L (96-108); Estimated Glomerular Filt Rate > 60; Glucose Random 139 mg/dL (60-115); Potassium 4.8 mmol/L (3.3-5.1); Sodium 138 mmol/L (135-145); Total Protein 7.2 g/dL (6.5-8.0)
[2023-07-03 11:08] LABS: Creatinine Urine 13.59 mg/dL; Microalbum/Creatinine Ratio Ur 264.9 ug/mg cr (<30)
== END 2023-07-03 10:03 | disposition home or self-care (01) ==
LOC: HO.10HDL 10:02
PROVIDERS: Visit Provider Internal Medicine
DX: E11.9 Type 2 diabetes mellitus without complications (principal); I10 Essential (primary) hypertension; R60.9 Edema, unspecified; J44.9 Chronic obstructive pulmonary disease, unspecified; D64.9 Anemia, unspecified
CPT/HCPCS: 36415; 80053; 82043; 82570; 83036; 85025

== ENCOUNTER 2023-07-29 13:39 | Outpatient (AMB) | payer MEDICARE, SELFPAY ==
[2023-07-29 13:46] VITALS: BP 160/52; PULSE 63
--- NOTE | 2023-07-29 13:46 | MHC.OFFVIS ---
Intake Vital Signs 07/29/23 13:46 Height 5 ft 6 in BMI Reason not done Patient refused/unable BP 160/52 H Blood Pressure Location Lt brachial Position Sitting Pulse 63 Intake Visit Reasons: 6 month with [place] Intake Note: 6 month follow up Underwriting Support Manager Required: No Accompanied by: Self / Same As Patient Allergies No Known Allergies [No Known Allergies*] Allergy (Verified 07/29/23 13:57) Medication List - Last Reconciled 07/29/23 by Dimitri Felix MD carvedilol One and half tablet orally 2 times a day; 90 days furosemide 20 mg PO DAILY lisinopril 40 mg PO DAILY metformin 500 mg PO DAILY HPI HPI Comments History of Present Illness Details Eitan returns for follow-up regarding his pacemaker. History of complete heart block around 2014. Then received a dual-chamber pacemaker. Otherwise, no known coronary disease, myocardial infarction or any other cardiac issues. He is a diabetic on metformin. Also on Coreg/lisinopril for hypertension. He he is still stressed from the loss of his to medical issues few months back. Has not gotten back to his normal self. Otherwise, no specific cardiac concerns. [facility] Medical History Cardiomyopathy Diabetes HTN (hypertension) Pacemaker Surgical History History of permanent cardiac pacemaker placement Family History Mother Father Social History Patient Tobacco Use Status: Former Tobacco user Years Smoked: >10 yr Review of Systems Const Denies weakness ENT Denies dizziness Card Denies chest pain, Denies chest pain with activity, Denies syncope, Denies rapid heart rate, Denies pedal edema, Denies edema, Denies leg edema, Denies lightheadedness, Denies palpitations, Denies dyspnea, Denies dyspnea on exertion and Denies orthopnea Resp Denies cough, Denies dyspnea and Denies dyspnea on exertion GI Denies hematochezia and Denies change in stool character Musc Denies abnormal gait, Denies muscle cramps, Denies muscle weakness, Denies numbness, Denies radiating pain into limb and Denies tingling Neuro Denies abnormal gait, Denies dizziness, Denies syncope, Denies numbness, Denies tingling and Denies weakness Endo Denies palpitations Physical Exam Vital Signs: Last Vital Signs Pulse 63 07/29/23 13:46 BP 160/52 H 07/29/23 13:46 Const General: comfortable and no acute distress Orientation/consciousness: patient oriented x3 HEENT Other: Unremarkable Head: Yes normal to inspection Neck Neck: Yes normal visual inspection Chest Chest palpation & inspection: normal inspection of the chest Resp Auscultation: clear to auscultation bilaterally Cardio Palpation: normal PMI Heart sounds: S1 normal heart sound present, S2 normal heart sound present, no gallops, no murmurs and no rubs GI Palpation (GI): Soft to palpation Back/Spine/Pelvis Other: unremarkable Skin General skin exam: no rashes or lesions noted Neuro General: patient oriented x3 Extrem General: Yes normal to inspection Psych Mental Status: mental status grossly normal Office Procedures Cardiac Device Check Cardiac Device Check Details: Pacemaker interrogated today. Dual-chamber device, programmed DDDR mode. Battery status, at SE[place]. Normal lead parameters. Very brief episode of atrial fibrillation, duration about 2 minutes. Overall burden less than 1%. Also, episode of NSVT, again very brief. Overall, normal device function apart from SEVERINO. [id number] Cardiac Device Check, pacemaker dual lead Procedure code (CPT) selection complete EKG Details: EKG with some sinus/some A paced- with V pacing. 71/min. [id number]-[id number], Complete Assessment & Plan Assessment & Plan (1) Cardiomyopathy: Code(s): I42.9 - Cardiomyopathy, unspecified Qualifiers: Cardiomyopathy type: unspecified Qualified Code(s): I42.9 - Cardiomyopathy, unspecified Plan: In the most recent echocardiogram, LVEF 50-55%. It has been about 40% in the past. Could be from pacing induced. Previously, perfusion imaging was unremarkable. Clinically, he has got absolutely no angina. No symptoms or signs of congestive heart failure. (2) Essential hypertension: Code(s): I10 - Essential (primary) hypertension Plan: Has been up and down in the past. On carvedilol/lisinopril. Today's on the higher side -but he states at home was only in the 130s. He is reluctant to get more meds. (3) Pacemaker at end of battery life: Code(s): Z45.010 - Encounter for checking and testing of cardiac pacemaker pulse generator [battery] Plan: Recently discussed with Dr. Min. Planned generator change next month. (4) PAF (paroxysmal atrial fibrillation): Code(s): I48.0 - Paroxysmal atrial fibrillation Plan: Transient episode on device check. Can monitor for now. Coding Level of Care Code Est Pt Level 4 (62153) Diagnoses Cardiomyopathy, unspecified type I42.9 Cardiomyopathy type: unspecified Essential hypertension I10 Pacemaker at end of battery life Z45.010 PAF (paroxysmal atrial fibrillation) I48.0 CPT Codes Cardiac Device Check - Cardiac Device 2: [id number] Cardiac Device Check, pacemaker dual lead ([id number]) EKG - CPT: 25088-Ukceqvyxvglhesnrn, Complete ([id number])
== END 2023-07-29 14:37 | disposition home or self-care (01) ==
PROVIDERS: PCP Internal Medicine; Visit Provider Internal Medicine
DX: I42.9 Cardiomyopathy, unspecified (principal); I10 Essential (primary) hypertension; I48.0 Paroxysmal atrial fibrillation; Z95.0 Presence of cardiac pacemaker
CPT/HCPCS: 93010; 93280; 99214

== ENCOUNTER → 2023-07-29 13:39 | Outpatient (BNVA) | payer MEDICARE, SELFPAY | PROVIDERS: PCP Internal Medicine; Visit Provider Internal Medicine | DX: I42.9 Cardiomyopathy, unspecified (principal); I10 Essential (primary) hypertension; I48.0 Paroxysmal atrial fibrillation; Z79.899 Other long term (current) drug therapy; Z45.018 Encounter for adjustment and management of other part of cardiac pacemaker | CPT/HCPCS: 93005; 93280; 99212 ==

== ENCOUNTER 2023-08-15 07:55 | Outpatient (AMB) | payer MEDICARE, SELFPAY ==
[2023-08-15 08:13] VITALS: BP 160/62; PULSE 61; BMI 29.0
--- NOTE | 2023-08-15 08:13 | A.OFFVIS_ITS ---
Intake Vital Signs 08/15/23 08:13 Height 5 ft 6 in Weight 179 lb 7.3 oz BMI 29.0 BP 160/62 H Blood Pressure Location Lt brachial Position Sitting Pulse 61 Pulse Source Pulse Oximeter Intake Visit Reasons: Wound Check Behavioral Health Rn Required: No Allergies No Known Allergies [No Known Allergies*] Allergy (Verified 08/15/23 08:15) Medication List - Last Reconciled 08/15/23 by MAHESH Welsh carvedilol One and half tablet orally 2 times a day; 90 days furosemide 20 mg PO DAILY lisinopril 40 mg PO DAILY metformin 500 mg PO DAILY HPI Wound Check HPI Details Eitan is a 78-year-old male with past medical history of diabetes, hypertension, complete heart block 2014, dual-chamber pacemaker, who recently underwent a generator change and now presents for wound check. Today he reports that he has had some discomfort at his pacemaker site. He feels that it is healing slowly. He is left handed and has been trying to be very careful. No new chest discomfort, shortness of breath, heart palpitations, lightheadedness, presyncope, syncope, PND, orthopnea or edema. Taking meds as directed. [facility] Medical History Cardiomyopathy Diabetes HTN (hypertension) Pacemaker Surgical History History of permanent cardiac pacemaker placement Family History Mother Father Social History Patient Tobacco Use Status: Former Tobacco user Years Smoked: >10 yr Review of Systems Const All systems reviewed & are unremarkable except as noted in HPI and below ENT Denies dizziness Card Details: mild discomfort left upper chest Denies chest pain, Denies chest pain at rest, Denies chest pain with activity, Denies rapid heart rate, Denies pedal edema, Denies edema, Denies leg edema, Denies lightheadedness, Denies palpitations, Denies dyspnea, Denies dyspnea on exertion and Denies orthopnea Resp Denies cough, Denies dyspnea and Denies dyspnea on exertion GI Denies hematochezia and Denies change in stool character Musc Denies abnormal gait, Denies limited range of motion, Denies muscle cramps, Denies muscle weakness, Denies numbness, Denies radiating pain into limb, Denies stiffness and Denies tingling Neuro Denies abnormal gait, Denies dizziness, Denies numbness and Denies tingling Endo Denies palpitations Physical Exam Vital Signs: Last Vital Signs Pulse 61 08/15/23 08:13 BP 160/62 H 08/15/23 08:13 BMI result Body Mass Index 29.0 Const General: cooperative, healthy appearing, comfortable and no acute distress Orientation/consciousness: patient oriented x3 Neck Neck: Yes normal visual inspection and Yes no JVD Chest Other: pacemaker site left upper chest fully intact, residual skin glue present, no redness, swelling or ecchimosis. Resp Effort & Inspection: normal respiratory effort Auscultation: clear to auscultation bilaterally, no rales, no rhonchi and no wheezes Cardio Jugular venous distension: no JVD Rate: regular rate Rhythm: regular rhythm Heart sounds: S1 normal heart sound present, S2 normal heart sound present, no murmurs and no rubs Neuro General: patient oriented x3 Extrem General: Yes normal to inspection and No no pedal edema Psych Appearance: grossly normal Mental Status: mental status grossly normal Speech and movement: Normal speech and movement present Assessment & Plan Assessment & Plan (1) Visit for wound check: Code(s): Z51.89 - Encounter for other specified aftercare Plan: Left upper chest dual-chamber pacemaker status post generator change on 08/08/[address] Min at [facility]. Patient reports minor sore ness at pacemaker site. Wound is healing very well. Skin glue still intact, edges well approximated, no signs of infection. No swelling or residual ecchymosis. Site care reviewed. (2) Pacemaker: Comment: [place] [employer] Code(s): Z95.0 - Presence of cardiac pacemaker Plan: History of complete heart block 2015. [employer] dual-chamber pacemaker in place. Recent SEVERINO and underwent generator change as above. Remote monito ring in use. Remote transmission from 08/08 reviewed showing battery greater than 8 years, a paced 87%, V paced 100%, no atrial fibrillation. Will arrange for device check with rep present in a few weeks. Then, Cardiology office visit with device check in 6 months, sooner if needed (3) Cardiomyopathy: Code(s): I42.9 - Cardiomyopathy, unspecified Qualifiers: Cardiomyopathy type: unspecified Qualified Code(s): I42.9 - Cardiomyo zohaib, unspecified Plan: History of mild non cardiomyopathy. May be related to V pacing. A nuclear stress test was done in 2019 showing no ischemia, fixed distal septal and apical defect most likely related to V pacing. Last echocardiogram done 01/16/2023 showing EF 50-55%, impaired relaxation, mild MR. On exam he has no clinical signs of heart failure. Continue on carvedilol and lisinopril. Signs and symptoms of heart failure reviewed. (4) PAF (paroxysmal atrial fibrillation): Code(s): I48.0 - Paroxysmal atrial fibrillation Plan: Very Brief episode of paroxysmal AFib seen on remote monitor in the past. Most recent interrogation showing no AF. Will continue to follow remotely. (5) Essential hypertension: Code(s): I10 - Essential (primary) hypertension Plan: Elevated today. He states he took his medications just prior to this visit. He follows with his PCP Dr. Larson routinely Patient Instructions: Time spent on chart review, documentation, interview and assessment Coding Level of Care Code Est Pt Level 3 (40566) Diagnoses Visit for wound check Z51.89 Pacemaker Z95.0 Cardiomyopathy, unspecified type I42.9 Cardiomyopathy type: unspecified PAF (paroxysmal atrial fibrillation) I48.0 Essential hypertension I10 Time Spent (min) 24
== END 2023-08-15 08:47 | disposition home or self-care (01) ==
PROVIDERS: PCP Internal Medicine; Visit Provider Nurse Practitioner Family
DX: Z51.89 Encounter for other specified aftercare (principal); Z95.0 Presence of cardiac pacemaker; I42.9 Cardiomyopathy, unspecified; I48.0 Paroxysmal atrial fibrillation; I10 Essential (primary) hypertension
CPT/HCPCS: 99213

== ENCOUNTER → 2023-08-15 07:55 | Outpatient (BNVA) | payer MEDICARE, SELFPAY | PROVIDERS: PCP Internal Medicine; Visit Provider Nurse Practitioner Family | DX: I42.9 Cardiomyopathy, unspecified (principal); I48.0 Paroxysmal atrial fibrillation; I10 Essential (primary) hypertension; Z51.89 Encounter for other specified aftercare; Z95.0 Presence of cardiac pacemaker | CPT/HCPCS: 99212 ==

== ENCOUNTER 2023-08-27 13:36 | Outpatient (AMB) | payer MEDICARE, SELFPAY ==
--- NOTE | 2023-09-01 12:30 | MHC.OFFVIS ---
Intake Visit Reasons: [employer] Allergies No Known Allergies [No Known Allergies*] Allergy (Verified 08/15/23 08:15) PFSH Medical History Cardiomyopathy Diabetes HTN (hypertension) Pacemaker Surgical History History of permanent cardiac pacemaker placement Family History Mother Father Social History Patient Tobacco Use Status: Former Tobacco user Years Smoked: >10 yr Office Procedures Cardiac Device Check Cardiac Device Check Details: Date of service- 08/27/2023 ; Battery life >6 years; normal lead parameters; AP 81%; CLINICAL INFORMATICS STRATEGIST 100%; no significant arrhythmias. Overall normal device function. [id number] Cardiac Device Interrogation, pacemaker Procedure code (CPT) selection complete Assessment & Plan Assessment & Plan (1) Cardiomyopathy: Code(s): I42.9 - Cardiomyopathy, unspecified Category: Medical Qualifiers: Cardiomyopathy type: unspecified Qualified Code(s): I42.9 - Cardiomyopathy, unspecified (2) Encounter for interrogation of cardiac pacemaker: Code(s): Z45.018 - Encounter for adjustment and management of other part of cardiac pacemaker Category: Medical Plan x
== END 2023-08-27 14:49 | disposition home or self-care (01) ==
PROVIDERS: PCP Internal Medicine; Visit Provider Internal Medicine Cardiovascular Disease
DX: I42.9 Cardiomyopathy, unspecified (principal); Z95.0 Presence of cardiac pacemaker
CPT/HCPCS: 93294

== ENCOUNTER → 2023-08-27 13:36 | Outpatient (BNVA) | payer MEDICARE, SELFPAY | PROVIDERS: PCP Internal Medicine; Visit Provider Internal Medicine Cardiovascular Disease ==

== ENCOUNTER → 2023-09-30 23:59 | Outpatient (BNV) | payer MEDICARE, SELFPAY ==
--- NOTE | 2023-10-02 14:09 | MHC.OFFVIS ---
Intake Visit Reasons: Remote device check- [employer] Allergies No Known Allergies [No Known Allergies*] Allergy (Verified 08/15/23 08:15) [facility] Medical History Cardiomyopathy Diabetes HTN (hypertension) Pacemaker Surgical History History of permanent cardiac pacemaker placement Family History Mother Father Social History Patient Tobacco Use Status: Former Tobacco user Years Smoked: >10 yr Office Procedures Cardiac Device Check Cardiac Device Check Details: Date of service- 09/30/2023 ; Battery life 7.5 years; normal lead parameters; AP 61%; LACTATION SPECIALIST 100%; no significant arrhythmias. Overall normal device function. [id number] Cardiac Device Interrogation, pacemaker Procedure code (CPT) selection complete Assessment & Plan Assessment & Plan (1) PAF (paroxysmal atrial fibrillation): Code(s): I48.0 - Paroxysmal atrial fibrillation Category: Medical Plan x Coding Level of Care Code Procedure Only Diagnoses PAF (paroxysmal atrial fibrillation) I48.0 CPT Codes Cardiac Device Check - Cardiac Device 12: [id number] Cardiac Device Interrogation, pacemaker ([id number])
== END ==
PROVIDERS: PCP Internal Medicine; Visit Provider Internal Medicine
DX: I48.0 Paroxysmal atrial fibrillation (principal); Z95.0 Presence of cardiac pacemaker
CPT/HCPCS: 93294

== ENCOUNTER → 2023-12-09 23:59 | Outpatient (BNV) | payer MEDICARE, SELFPAY ==
--- NOTE | 2023-12-11 19:28 | A.OFFVIS_ITS ---
Intake Visit Reasons: Remote device check- [employer] Allergies No Known Allergies [No Known Allergies*] Allergy (Verified 08/15/23 08:15) [facility] Medical History Cardiomyopathy Diabetes HTN (hypertension) Pacemaker Surgical History History of permanent cardiac pacemaker placement Family History Mother Father Social History Patient Tobacco Use Status: Former Tobacco user Years Smoked: >10 yr Office Procedures Cardiac Device Check Cardiac Device Check Details: Date of service- 12/09/2023 ; Battery life 7.5 years; normal lead parameters; AP 65%; PIPE SMOKER MACHINE OPERATOR 100%; no significant arrhythmias. Overall normal device function. [id number] Cardiac Device Interrogation, pacemaker Procedure code (CPT) selection complete Assessment & Plan Assessment & Plan (1) PAF (paroxysmal atrial fibrillation): Code(s): I48.0 - Paroxysmal atrial fibrillation Category: Medical Plan x Coding Level of Care Code Procedure Only Diagnoses PAF (paroxysmal atrial fibrillation) I48.0 CPT Codes Cardiac Device Check - Cardiac Device 12: [id number] Cardiac Device Interrogation, pacemaker ([id number])
== END ==
PROVIDERS: PCP Internal Medicine; Visit Provider Internal Medicine
DX: I48.0 Paroxysmal atrial fibrillation (principal); Z95.0 Presence of cardiac pacemaker
CPT/HCPCS: 93294

== ENCOUNTER → 2024-01-13 23:59 | Outpatient (BNV) | payer MEDICARE, SELFPAY ==
--- NOTE | 2024-01-19 13:37 | MHC.OFFVIS ---
Intake Visit Reasons: Remote device check- [employer] Allergies No Known Allergies [No Known Allergies*] Allergy (Verified 08/15/23 08:15) PFSH Medical History Cardiomyopathy Diabetes HTN (hypertension) Pacemaker Surgical History History of permanent cardiac pacemaker placement Family History Mother Father Social History Patient Tobacco Use Status: Former Tobacco user Years Smoked: >10 yr Office Procedures Cardiac Device Check Cardiac Device Check Details: Date of service- 01/13/2024 ; Battery life 7.5 years; normal lead parameters; AP 64%; DEVULCANIZER TENDER 100%; no significant arrhythmias. Overall normal device function. [id number] Cardiac Device Interrogation, pacemaker Procedure code (CPT) selection complete Assessment & Plan Assessment & Plan (1) Cardiomyopathy: Code(s): I42.9 - Cardiomyopathy, unspecified Category: Medical Qualifiers: Cardiomyopathy type: unspecified Qualified Code(s): I42.9 - Cardiomyopathy, unspecified (2) Pacemaker: Comment: [place] [employer] Code(s): Z95.0 - Presence of cardiac pacemaker Category: Medical (3) PAF (paroxysmal atrial fibrillation): Code(s): I48.0 - Paroxysmal atrial fibrillation Category: Medical Plan x Coding Level of Care Code Procedure Only Diagnoses Cardiomyopathy, unspecified type I42.9 Cardiomyopathy type: unspecified Pacemaker Z95.0 PAF (paroxysmal atrial fibrillation) I48.0 CPT Codes Cardiac Device Check - Cardiac Device 12: [id number] Cardiac Device Interrogation, pacemaker ([id number])
== END ==
PROVIDERS: PCP Internal Medicine; Visit Provider Internal Medicine
DX: I48.0 Paroxysmal atrial fibrillation (principal); I42.9 Cardiomyopathy, unspecified; Z95.0 Presence of cardiac pacemaker
CPT/HCPCS: 93294

== ENCOUNTER 2024-01-20 07:45 | Outpatient (REF) | payer MEDICARE, SELFPAY ==
[2024-01-20 10:15] LABS: MANUAL DIFF FLAG NO
[2024-01-20 10:20] LABS: Basophils Absolute Auto 0.1 X10*3/uL (0.0-0.2); Basophils Percent Auto 1.7 % (0-2); Eosinophils Absolute Auto 0.5 X10*3/uL (0.0-0.4); Eosinophils Percent Auto 8.3 % (0-4); Hematocrit 39.8 % (42.0-52.0); Hemoglobin 13.6 g/dl (14.0-18.0); Imm Gran Abs Auto 0.03 X10*3/uL (0.00-0.03); Imm Gran Pct Auto 0.5 % (0.0-0.4); Lymphocytes Absolute Auto 0.8 X10*3/uL (1.2-4.9); Lymphocytes Percent Auto 14.1 % (20-40); Mean Corpuscular HGB Conc 34.2 g/dl (31.0-36.0); Mean Corpuscular Hemoglobin 33.7 pg (27.0-33.0); Mean Corpuscular Volume 98.5 fL (80.0-98.0); Mean Platelet Volume 10.6 fL (9.4-12.4); Monocytes Absolute Auto 0.7 X10*3/uL (0.1-1.2); Monocytes Percent Auto 11.9 % (2-11); Neutrophils Absolute Auto 3.7 x10*3/uL (2.0-8.3); Neutrophils Percent Auto 63.5 % (45-73); Platelet Count 176 X10*3/uL (160-400); Red Blood Count 4.04 X10*6/uL (4.60-5.80); Red Cell Distribution Width 13.2 % (11.0-16.0); White Blood Count 5.9 X10*3/uL (4.8-10.8)
[2024-01-20 10:45] LABS: Alanine Aminotransferase 13 U/L (0-40); Alkaline Phosphatase 56 U/L (39-117); Anion Gap 14 (12-20); Aspartate Amino Transferase 22 U/L (5-37); Bilirubin Total 0.6 mg/dL (0.0-1.0); Blood Urea Nitrogen 17 mg/dL (9-16); Calcium 9.5 mg/dL (8.4-10.2); Carbon Dioxide 24 mmol/L (22-29); Chloride 106 mmol/L (96-108); Cholesterol 155 mg/dL (<200); Estimated Glomerular Filt Rate > 60; Glucose Fasting 159 mg/dL (60-99); HDL Cholesterol 42 mg/dL (>40); LDL Cholesterol Calculated 89 mg/dL (<100); Potassium 4.6 mmol/L (3.3-5.1); Sodium 139 mmol/L (135-145); Total Protein 6.8 g/dL (6.5-8.0); Triglycerides 121 mg/dL (<150)
[2024-01-20 11:00] LABS: Creatinine Urine 22.66 mg/dL; Microalbum/Creatinine Ratio Ur 547.2 ug/mg cr (<30)
[2024-01-20 11:51] LABS: Estimated Average Glucose 131 mg/dL; Hemoglobin A1c % 6.2 % (<6.0)
== END 2024-01-20 07:46 | disposition home or self-care (01) ==
LOC: HO.HMGCLDS 07:45
PROVIDERS: PCP Internal Medicine; Visit Provider Internal Medicine
DX: I10 Essential (primary) hypertension (principal); E11.9 Type 2 diabetes mellitus without complications; J44.9 Chronic obstructive pulmonary disease, unspecified
CPT/HCPCS: 36415; 80053; 80061; 82043; 82570; 83036; 85025

== ENCOUNTER → 2024-02-17 23:59 | Outpatient (BNV) | payer MEDICARE, SELFPAY ==
--- NOTE | 2024-02-18 15:24 | MHC.OFFVIS ---
Intake Visit Reasons: Remote device check- [employer] Allergies No Known Allergies [No Known Allergies*] Allergy (Verified 08/15/23 08:15) PFSH Medical History Cardiomyopathy Diabetes HTN (hypertension) Pacemaker Surgical History History of permanent cardiac pacemaker placement Family History Mother Father Social History Patient Tobacco Use Status: Former Tobacco user Years Smoked: >10 yr Office Procedures Cardiac Device Check Cardiac Device Check Details: Date of service- 02/17/2024 ; Battery life >7 years; normal lead parameters; AP 65%; SOLAR INSTALLER 100%; no significant arrhythmias. Overall normal device function. [id number] Cardiac Device Interrogation, pacemaker Procedure code (CPT) selection complete Assessment & Plan Assessment & Plan (1) Pacemaker: Comment: [place] [employer] Code(s): Z95.0 - Presence of cardiac pacemaker Category: Medical (2) PAF (paroxysmal atrial fibrillation): Code(s): I48.0 - Paroxysmal atrial fibrillation Category: Medical Plan x Coding Level of Care Code Procedure Only Diagnoses Pacemaker Z95.0 PAF (paroxysmal atrial fibrillation) I48.0 CPT Codes Cardiac Device Check - Cardiac Device 12: [id number] Cardiac Device Interrogation, pacemaker ([id number])
== END ==
PROVIDERS: PCP Internal Medicine; Visit Provider Internal Medicine
DX: I48.0 Paroxysmal atrial fibrillation (principal); Z95.0 Presence of cardiac pacemaker
CPT/HCPCS: 93294

== ENCOUNTER 2024-02-25 13:13 | Outpatient (AMB) | payer MEDICARE, SELFPAY ==
[2024-02-25 13:22] VITALS: BP 178/52; PULSE 60; BMI 28.1
--- NOTE | 2024-02-25 13:22 | MHC.OFFVIS ---
Vital Signs 02/25/24 13:22 Height 5 ft 6 in Weight 174 lb 2.643 oz BMI 28.1 BP 178/52 H Blood Pressure Location Lt brachial Position Sitting Pulse 60 Pulse Source Pulse Oximeter Intake Visit Reasons: 6 month follow up Sleeve Wheel Maker Required: No Accompanied by: Self / Same As Patient Allergies No Known Allergies [No Known Allergies*] Allergy (Verified 08/15/23 08:15) Medication List - Last Reconciled 02/25/24 by Dimitri Felix MD carvedilol One and half tablet orally 2 times a day; 90 days furosemide 20 mg PO DAILY lisinopril 40 mg PO DAILY metformin 500 mg PO DAILY HPI Comments Details: Eitan returns for follow-up regarding his pacemaker. History of complete heart block around 2014. Then received a dual-chamber pacemaker. Earlier this year, he underwent generator change. History of hypertension and diabetes. 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 Otherwise, no specific symptoms. He states he feels fine. No angina or shortness of breath. Lost his to medical issues recently and hence there is stress. Otherwise, getting along okay. [facility] Medical History Cardiomyopathy Diabetes HTN (hypertension) Pacemaker Surgical History History of permanent cardiac pacemaker placement Family History Mother Father Social History (Updated 02/25/24 @ 13:23 by Ro Roman CMA) Alcohol intake: current Alcohol intake frequency: holidays/special occasions only Patient Tobacco Use Status: Former Tobacco user Years Smoked: >10 yr Review of Systems Const Denies chills, Denies fatigue, Denies fever(s), Denies weight gain and Denies weight loss ENT Denies dizziness Card Denies chest pain, Denies leg edema, Denies lightheadedness, Denies palpitations, Denies dyspnea on exertion, Denies orthopnea and Denies other Resp Denies cough and Denies dyspnea on exertion GI Denies hematochezia and Denies change in stool character Musc Denies abnormal gait, Denies muscle weakness, Denies numbness, Denies radiating pain into limb and Denies tingling Neuro Denies abnormal gait, Denies dizziness, Denies numbness and Denies tingling Endo Denies fatigue and Denies palpitations Physical Exam Vital Signs: Last Vital Signs Pulse 60 02/25/24 13:22 BP 178/52 H 02/25/24 13:22 BMI result Body Mass Index 28.1 Const General: comfortable and no acute distress Orientation/consciousness: patient oriented x3 HEENT Other: Unremarkable Head: Yes normal to inspection Neck Neck: Yes normal visual inspection Chest Chest palpation & inspection: normal inspection of the chest Resp Auscultation: clear to auscultation bilaterally Cardio Palpation: normal PMI Heart sounds: S1 normal heart sound present, S2 normal heart sound present, no gallops, no murmurs and no rubs GI Palpation (GI): Soft to palpation Back/Spine/Pelvis Other: unremarkable Skin General skin exam: no rashes or lesions noted Neuro General: patient oriented x3 Extrem General: Yes normal to inspection Psych Mental Status: mental status grossly normal Assessment & Plan Assessment & Plan (1) Cardiomyopathy: Code(s): I42.9 - Cardiomyopathy, unspecified Category: Medical Qualifiers: Cardiomyopathy type: unspecified Qualified Code(s): I42.9 - Cardiomyopathy, unspecified Plan: In the most recent echocardiogram, LVEF 50-55%. It has been about 40% in the past. Could be from pacing induced. Previously, perfusion imaging was unremarkable. Clinically, he has got absolutely no angina. No symptoms or signs of congestive heart failure. (2) Essential hypertension: Code(s): I10 - Essential (primary) hypertension Category: Medical Plan: Office blood pressures are always high but he states home blood pressures only in the 130s and at most 140s. We can go up on the carvedilol to 25 mg twice a day. Patient agrees. He is also on lisinopril. No changes. (3) PAF (paroxysmal atrial fibrillation): Code(s): I48.0 - Paroxysmal atrial fibrillation Category: Medical Plan: Transient episode in the past on device check. Can monitor for now. No recent concerns. Medications: New carvedilol (Coreg) must administer with a meal/food 25 mg PO BID 180 tabs 3RF 90 days Discontinued carvedilol Discontinued Reason: Doctor's Order One and half tablet orally 2 times a day; 90 days 270 tabs 3RF Coding Level of Care Code Est Pt Level 4 (13560) Diagnoses Cardiomyopathy, unspecified type I42.9 Cardiomyopathy type: unspecified Essential hypertension I10 PAF (paroxysmal atrial fibrillation) I48.0
== END 2024-02-25 13:59 | disposition home or self-care (01) ==
PROVIDERS: PCP Internal Medicine; Visit Provider Internal Medicine
DX: I42.9 Cardiomyopathy, unspecified (principal); I10 Essential (primary) hypertension; I48.0 Paroxysmal atrial fibrillation
CPT/HCPCS: 99214

== ENCOUNTER → 2024-02-25 13:13 | Outpatient (BNVA) | payer MEDICARE, SELFPAY | PROVIDERS: PCP Internal Medicine; Visit Provider Internal Medicine | DX: I42.9 Cardiomyopathy, unspecified (principal); I44.2 Atrioventricular block, complete; I10 Essential (primary) hypertension; I48.0 Paroxysmal atrial fibrillation | CPT/HCPCS: 99212 ==

== ENCOUNTER → 2024-03-23 23:59 | Outpatient (BNV) | payer MEDICARE, SELFPAY ==
--- NOTE | 2024-03-24 19:09 | A.OFFVIS_ITS ---
Intake Visit Reasons: Remote device check- [employer] Allergies No Known Allergies [No Known Allergies*] Allergy (Verified 08/15/23 08:15) PFSH Medical History Cardiomyopathy Diabetes HTN (hypertension) Pacemaker Surgical History History of permanent cardiac pacemaker placement Family History Mother Father Social History (Updated 02/25/24 @ 13:23 by Ro Roman CMA) Alcohol intake: current Alcohol intake frequency: holidays/special occasions only Patient Tobacco Use Status: Former Tobacco user Years Smoked: >10 yr Office Procedures Cardiac Device Check Cardiac Device Check Details: Date of service- 03/23/2024 ; Battery life 7 years; normal lead parameters; AP 66%; DRAIN TILE PRESS OPERATOR 100%; no significant arrhythmias. Overall normal device function. [id number] Cardiac Device Interrogation, pacemaker Procedure code (CPT) selection complete Assessment & Plan Assessment & Plan (1) Pacemaker: Comment: [place] [employer] Code(s): Z95.0 - Presence of cardiac pacemaker Category: Medical (2) Cardiomyopathy: Code(s): I42.9 - Cardiomyopathy, unspecified Category: Medical Qualifiers: Cardiomyopathy type: unspecified Qualified Code(s): I42.9 - Cardiomyopathy, unspecified Plan x Coding Level of Care Code Procedure Only Diagnoses Pacemaker Z95.0 Cardiomyopathy, unspecified type I42.9 Cardiomyopathy type: unspecified CPT Codes Cardiac Device Check - Cardiac Device 12: [id number] Cardiac Device Interrogation, pacemaker ([id number])
== END ==
PROVIDERS: PCP Internal Medicine; Visit Provider Internal Medicine
DX: I42.9 Cardiomyopathy, unspecified (principal); Z95.0 Presence of cardiac pacemaker
CPT/HCPCS: 93294

== ENCOUNTER → 2024-04-27 23:59 | Outpatient (BNV) | payer MEDICARE, SELFPAY ==
--- NOTE | 2024-04-28 19:20 | MHC.OFFVIS ---
Intake Visit Reasons: Remote device check- [employer] Allergies No Known Allergies [No Known Allergies*] Allergy (Verified 08/15/23 08:15) PFSH Medical History Cardiomyopathy Diabetes HTN (hypertension) Pacemaker Surgical History History of permanent cardiac pacemaker placement Family History Mother Father Social History (Updated 02/25/24 @ 13:23 by Ro Roman CMA) Alcohol intake: current Alcohol intake frequency: holidays/special occasions only Patient Tobacco Use Status: Former Tobacco user Years Smoked: >10 yr Office Procedures Cardiac Device Check Cardiac Device Check Details: Date of service- 04/27/2024 ; Battery life 7 years; normal lead parameters; AP 67%; MARKETING STRATEGY ANALYST 100%; no significant arrhythmias. Overall normal device function. [id number] Cardiac Device Interrogation, pacemaker Procedure code (CPT) selection complete Assessment & Plan Assessment & Plan (1) Pacemaker: Comment: [place] [employer] Code(s): Z95.0 - Presence of cardiac pacemaker Category: Medical (2) PAF (paroxysmal atrial fibrillation): Code(s): I48.0 - Paroxysmal atrial fibrillation Category: Medical Plan X Coding Level of Care Code Procedure Only Diagnoses Pacemaker Z95.0 PAF (paroxysmal atrial fibrillation) I48.0 CPT Codes Cardiac Device Check - Cardiac Device 12: [id number] Cardiac Device Interrogation, pacemaker ([id number])
== END ==
PROVIDERS: PCP Internal Medicine; Visit Provider Internal Medicine
DX: I48.0 Paroxysmal atrial fibrillation (principal); Z95.0 Presence of cardiac pacemaker
CPT/HCPCS: 93294

== ENCOUNTER → 2024-06-01 23:59 | Outpatient (BNV) | payer MEDICARE, SELFPAY ==
--- NOTE | 2024-06-07 11:33 | MHC.OFFVIS ---
Intake Visit Reasons: Remote device check- [employer] Allergies No Known Allergies [No Known Allergies*] Allergy (Verified 08/15/23 08:15) PFSH Medical History Cardiomyopathy Diabetes HTN (hypertension) Pacemaker Surgical History History of permanent cardiac pacemaker placement Family History Mother Father Social History (Updated 02/25/24 @ 13:23 by Ro Roman CMA) Alcohol intake: current Alcohol intake frequency: holidays/special occasions only Patient Tobacco Use Status: Former Tobacco user Years Smoked: >10 yr Office Procedures Cardiac Device Check Cardiac Device Check Details: Date of service- 06/01/2024 ; Battery life 7 years; normal lead parameters; AP 67%; STOVE FITTER 100%; no significant arrhythmias. Overall normal device function. [id number] Cardiac Device Interrogation, pacemaker Procedure code (CPT) selection complete Assessment & Plan Assessment & Plan (1) Pacemaker: Comment: [place] [employer] Code(s): Z95.0 - Presence of cardiac pacemaker Category: Medical (2) Cardiomyopathy: Code(s): I42.9 - Cardiomyopathy, unspecified Category: Medical Qualifiers: Cardiomyopathy type: unspecified Qualified Code(s): I42.9 - Cardiomyopathy, unspecified Plan x Coding Level of Care Code Procedure Only Diagnoses Pacemaker Z95.0 Cardiomyopathy, unspecified type I42.9 Cardiomyopathy type: unspecified CPT Codes Cardiac Device Check - Cardiac Device 12: [id number] Cardiac Device Interrogation, pacemaker ([id number])
== END ==
PROVIDERS: PCP Internal Medicine; Visit Provider Internal Medicine
DX: I42.9 Cardiomyopathy, unspecified (principal); Z95.0 Presence of cardiac pacemaker
CPT/HCPCS: 93294

== ENCOUNTER → 2024-07-06 23:59 | Outpatient (BNV) | payer MEDICARE, SELFPAY ==
--- NOTE | 2024-07-06 19:09 | MHC.OFFVIS ---
Intake Visit Reasons: Remote device check - [employer] Allergies No Known Allergies [No Known Allergies*] Allergy (Verified 08/15/23 08:15) PFSH Medical History Cardiomyopathy Diabetes HTN (hypertension) Pacemaker Surgical History History of permanent cardiac pacemaker placement Family History Mother Father Social History (Updated 02/25/24 @ 13:23 by Ro Roman CMA) Alcohol intake: current Alcohol intake frequency: holidays/special occasions only Patient Tobacco Use Status: Former Tobacco user Years Smoked: >10 yr Office Procedures Cardiac Device Check Cardiac Device Check Details: Date of service- 07/06/2024 ; Battery life 7 years; normal lead parameters; AP 68%; RAILWAY TRACTION LINE WORKER 100%; no significant arrhythmias. Overall normal device function. [id number] Cardiac Device Interrogation, pacemaker Procedure code (CPT) selection complete Assessment & Plan Assessment & Plan (1) Pacemaker: Comment: [place] [employer] Code(s): Z95.0 - Presence of cardiac pacemaker Category: Medical (2) PAF (paroxysmal atrial fibrillation): Code(s): I48.0 - Paroxysmal atrial fibrillation Category: Medical Plan x Coding Level of Care Code Procedure Only Diagnoses Pacemaker Z95.0 PAF (paroxysmal atrial fibrillation) I48.0 CPT Codes Cardiac Device Check - Cardiac Device 12: [id number] Cardiac Device Interrogation, pacemaker ([id number])
== END ==
PROVIDERS: PCP Internal Medicine; Visit Provider Internal Medicine
DX: I48.0 Paroxysmal atrial fibrillation (principal); Z95.0 Presence of cardiac pacemaker
CPT/HCPCS: 93294

== ENCOUNTER 2024-08-07 08:50 | Outpatient (AMB) | payer MEDICARE, SELFPAY ==
[2024-08-07 08:51] VITALS: BP 142/82; PULSE 77; RESP 14; TEMP 36.4; O2SAT 95; BMI 27.9
--- NOTE | 2024-08-07 08:51 | MHC.PC.OV ---
Vital Signs 08/07/24 08:51 Height 5 ft 6 in Weight 173 lb BMI 27.9 BP 142/82 H Respiration 14 Pulse 77 Pulse Source Pulse Oximeter Temp 97.6 F Temp Source Temporal Artery Scan Pulse Oximetry (%) 95 Oxygen Delivery Method Room Air Intake Visit Reasons: Routine Latcher Required: No Accompanied by: Self / Same As Patient Allergies No Known Allergies [No Known Allergies*] Allergy (Verified 08/07/24 08:52) Tobacco use date assessed: 08/07/24 Fall risk assessment: No Falls in past year Last assessed Fall Risk: 08/07/24 Dental Screening Dental Screen Date: 08/07/24 Did you have a dental visit in the last 12 months?: Yes Did you have a dental problem in the last 6 months where you did not have access to dental care?: No HPI HPI Comments History of Present Illness Details Patient is an 79 year old male with NIDD, pAfib, anemia, COPD, hypertension, diverticulosis, history of prostate cancer, presenting for follow up CV: Follows with cardiology. Blood pressure 142/82. No chest pain, dizziness.History of complete heart block around 2014. Then received a dual-chamber pacemaker. 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 DM: last a1c 6.2 on metformin. Dental is utd ROS CONSTITUTIONAL: Denies weight loss, fever and chills. HEENT: Denies changes in vision and hearing. RESPIRATORY: Denies SOB and cough. CV: Denies palpitations and CP GI: Denies abdominal pain, nausea, vomiting and diarrhea. : Denies dysuria and urinary frequency. MSK: Denies new myalgia and joint pain. SKIN: Denies rash and pruritus. NEUROLOGICAL: Denies headache PSYCHIATRIC: Denies recent changes in mood. PHYSICAL EXAM: GENERAL: Alert and oriented x 3. NAD EYES: EOMI. Anicteric. HENT: Moist mucous membranes. No scleral icterus. No cervical lymphadenopathy. LUNGS: Clear to auscultation bilaterally. CARDIOVASCULAR: Regular rate and rhythm. No murmur. No JVD. ABDOMEN: Soft, non-tender +bs EXTREMITIES: No edema. Non-tender. SKIN: No rashes or lesions. Warm. NEUROLOGIC: No focal neurological deficits. CN II-XII grossly intact PSYCHIATRIC: Cooperative. Appropriate mood and affect [facility] Medical History Diabetes HTN (hypertension) Pacemaker Cardiomyopathy Surgical History History of permanent cardiac pacemaker placement Family History Mother Father Social History Housing: House Alcohol intake: current Alcohol intake frequency: a few times a week Patient Tobacco Use Status: Former Tobacco user Years Smoked: >10 yr service: No Current occupational status: retired Cognitive needs: No Hearing needs: Yes (left ear hearing aids) Vision needs: Yes (rx glasses) Questionnaire PHQ-9 Over the last 2 weeks, how often have you been bothered by any of the following problems? 1. Little interest or pleasure in doing things: not at all 2. Feeling down, depressed, or hopeless: not at all 3. Trouble falling or staying asleep, or sleeping too much: not at all 4. Feeling tired or having little energy: not at all 5. Poor appetite or overeating: not at all 6. Feeling bad about yourself - or that you are a failure or have let yourself or your family down: not at all 7. Trouble concentrating on things, such as reading the newspaper or watching television: not at all 8. Moving or speaking so slowly that other people could have noticed. Or the opposite - being so fidgety or restless that you have been moving around a lot more than usual: not at all 9. Thoughts that you would be better off or of hurting yourself in some way: not at all Total score: 0 Depression Screening Interpretation: Negative Depression Screening Done: Yes 00324 - PHQ-9 Billing: Yes Source: Developed by Drs. Santiago Gardiner, Camille Justin, Karthik Vital and colleagues, with an educational eli from [employer]. Thrive Questionnaire Date Thrive assessed: 08/07/24 I am a: Patient What is your living situation today?: I have a steady place to live Within the past 12 months, did the food you bought not last and you didn't have the money to get more?: Never true Within the past 12 months, did you worry whether your food would run out before you got money to buy more?: Never true Do you have trouble paying for medicines?: No Do you have trouble getting transportation to medical appointments?: No Do you have trouble paying your heating and electricity bill?: No Do you have trouble taking care of your child, family member or friend?: No Do you have trouble with day-to-day activities such as bathing, preparing meals, shopping, managing finances, etc.?: No Are you currently unemployed and looking for a job?: No Are you interested in more education?: No Please select the resources that you would like help with: None THRIVE Score: 0 AUDIT C Alcohol Use Questionnaire (AUDIT-C) 1. How often do you have a drink containing alcohol?: 4 or more times a week 2. How many drinks containing alcohol do you have on a typical day when you are drinking?: 1 or 2 3. How often do you have six or more drinks on one occasion?: Never Total Score: 4 NICK-7 AMB Questionnaire NICK-7 Date NICK - 7 assessed: 08/07/24 Feeling nervous, anxious, or on edge: 0 = Not at all Not being able to stop or control worryin = Not at all Worrying too much about different things: 0 = Not at all Trouble relaxin = Not at all Being so restless that it is hard to sit still: 0 = Not at all Becoming easily annoyed or irritable: 0 = Not at all Feeling afraid as if something awful might happen: 0 = Not at all Total NICK-7 score (0-4 normal; 5-9 mild; 10-14 moderate; 15-21 severe): 0 Source: Developed by Drs. Santiago Gardiner, Camille Justin, Karthik Vital and colleagues, with an educational eli from [employer]. Physical exam (Primary Care) Vital Signs: Last Vital Signs Temp 97.6 F 08/07/24 08:51 Pulse 77 08/07/24 08:51 Resp 14 08/07/24 08:51 BP 142/82 H 08/07/24 08:51 Pulse Ox 95 08/07/24 08:51 Oxygen Delivery Method Room Air 08/07/24 08:51 BMI result Body Mass Index 27.9 Tobacco/Smoking Status: Tobacco use Status Tobacco use date assessed 08/07/24 08/07/24 09:00 Patient Tobacco Use Status Former Tobacco user 08/07/24 09:00 PHQ-9: PHQ-9 Score PHQ-9: Total score 0 08/07/24 09:09 Depression Screening Interpretation: Negative Thrive Assessment: Date of Thrive Assessment Date Thrive assessed 08/07/24 08/07/24 09:00 Coding Level of Care Code New Pt Level 4 (00619) Diagnoses PAF (paroxysmal atrial fibrillation) I48.0 Type 2 diabetes mellitus with other circulatory complication, without long-term current use of insulin E11.59 Diabetes mellitus type: type 2 Diabetes mellitus custodial insulin use: without salvage determiner use Diabetes mellitus complication status: with circulatory complication Diabetes mellitus complication detail: with other circulatory complications Cardiomyopathy, unspecified type I42.9 Cardiomyopathy type: unspecified Additional Codes PHQ-9 - 94608 - PHQ-9 Billing: Yes ([id number]) Assessment & Plan Assessment & Plan (1) PAF (paroxysmal atrial fibrillation): Code(s): I48.0 - Paroxysmal atrial fibrillation Category: Medical (2) Diabetes: Code(s): E11.9 - Type 2 diabetes mellitus without complications Category: Medical Qualifiers: Diabetes mellitus type: type 2 Diabetes mellitus custodial insulin use: without custodial use Diabetes mellitus complication status: with circulatory complication Diabetes mellitus complication detail: with other circulatory complications Qualified Code(s): E11.59 - Type 2 diabetes mellitus with other circulatory complications (3) Cardiomyopathy: Code(s): I42.9 - Cardiomyopathy, unspecified Category: Medical Qualifiers: Cardiomyopathy type: unspecified Qualified Code(s): I42.9 - Cardiomyopathy, unspecified Plan 79 to establish care pmh, surgical, social, family reviewed HTN-adequate control for age DM-controlled on current medications Due for labs Orders: Orders Complete Blood Count Auto Diff Today E11.9 - Type 2 diabetes mellitus without complications, I10 - Essential (primary) hypertension, I48.0 - Paroxysmal atrial fibrillation Comprehensive Met. Panel Today E11.9 - Type 2 diabetes mellitus without complications, I10 - Essential (primary) hypertension, I48.0 - Paroxysmal atrial fibrillation Lipid Panel Today E11.9 - Type 2 diabetes mellitus without complications, I10 - Essential (primary) hypertension, I48.0 - Paroxysmal atrial fibrillation Hemoglobin A1c 4 Months E11.9 - Type 2 diabetes mellitus without complications, I10 - Essential (primary) hypertension Comprehensive Met. Panel 4 Months E11.9 - Type 2 diabetes mellitus without complications, I10 - Essential (primary) hypertension Hemoglobin A1c Today E11.9 - Type 2 diabetes mellitus without complications, I10 - Essential (primary) hypertension, I48.0 - Paroxysmal atrial fibrillation
== END 2024-08-07 09:21 | disposition home or self-care (01) ==
LOC: HO.HMCHD 08:50
PROVIDERS: PCP Internal Medicine; Visit Provider Internal Medicine
DX: I48.0 Paroxysmal atrial fibrillation (principal); E11.59 Type 2 diabetes mellitus with other circulatory complications; I42.9 Cardiomyopathy, unspecified

== ENCOUNTER → 2024-08-07 08:50 | Outpatient (BNVA) | payer MEDICARE, SELFPAY | PROVIDERS: PCP Internal Medicine; Visit Provider Internal Medicine | DX: E11.59 Type 2 diabetes mellitus with other circulatory complications (principal); I42.9 Cardiomyopathy, unspecified; I48.0 Paroxysmal atrial fibrillation; J44.9 Chronic obstructive pulmonary disease, unspecified; I10 Essential (primary) hypertension; Z79.84 Long term (current) use of oral hypoglycemic drugs; Z95.0 Presence of cardiac pacemaker | CPT/HCPCS: 96127; 99202 ==

== ENCOUNTER 2024-08-08 06:37 | Outpatient (REF) | payer MEDICARE, SELFPAY ==
[2024-08-08 11:44] LABS: MANUAL DIFF FLAG NO
[2024-08-08 11:49] LABS: Basophils Absolute Auto 0.1 X10*3/uL (0.0-0.2); Basophils Percent Auto 1.4 % (0-2); Eosinophils Absolute Auto 0.5 X10*3/uL (0.0-0.4); Eosinophils Percent Auto 7.9 % (0-4); Hematocrit 38.8 % (42.0-52.0); Hemoglobin 13.3 g/dl (14.0-18.0); Imm Gran Abs Auto 0.04 X10*3/uL (0.00-0.03); Imm Gran Pct Auto 0.6 % (0.0-0.4); Lymphocytes Absolute Auto 0.9 X10*3/uL (1.2-4.9); Lymphocytes Percent Auto 13.1 % (20-40); Mean Corpuscular HGB Conc 34.3 g/dl (31.0-36.0); Mean Corpuscular Hemoglobin 32.7 pg (27.0-33.0); Mean Corpuscular Volume 95.3 fL (80.0-98.0); Mean Platelet Volume 10.2 fL (9.4-12.4); Monocytes Absolute Auto 0.7 X10*3/uL (0.1-1.2); Monocytes Percent Auto 11.3 % (2-11); Neutrophils Absolute Auto 4.3 x10*3/uL (2.0-8.3); Neutrophils Percent Auto 65.7 % (45-73); Platelet Count 188 X10*3/uL (160-400); Red Blood Count 4.07 X10*6/uL (4.60-5.80); Red Cell Distribution Width 14.8 % (11.0-16.0); White Blood Count 6.6 X10*3/uL (4.8-10.8)
[2024-08-08 12:00] LABS: Estimated Average Glucose 143 mg/dL; Hemoglobin A1c % 6.6 % (<6.0); Total Hemoglobin (HGBA1C) 3475.8149 umol/L
[2024-08-08 12:12] LABS: Alanine Aminotransferase 13 U/L (0-40); Albumin Level 3.9 g/dL (3.5-5.0); Alkaline Phosphatase 53 U/L (39-117); Anion Gap 10 (12-20); Aspartate Amino Transferase 23 U/L (5-37); Bilirubin Total 0.5 mg/dL (0.0-1.0); Blood Urea Nitrogen 15 mg/dL (9-16); Calcium 9.5 mg/dL (8.4-10.2); Carbon Dioxide 26 mmol/L (22-29); Chloride 108 mmol/L (96-108); Cholesterol 152 mg/dL (<200); Estimated Glomerular Filt Rate > 60; Glucose Random 162 mg/dL (60-115); HDL Cholesterol 44 mg/dL (>40); LDL Cholesterol Calculated 84 mg/dL (<100); Potassium 4.1 mmol/L (3.3-5.1); Sodium 140 mmol/L (135-145); Total Protein 6.6 g/dL (6.5-8.0); Triglycerides 124 mg/dL (<150)
== END 2024-08-08 06:38 | disposition home or self-care (01) ==
LOC: HO.HMGCLDS 06:37
PROVIDERS: PCP Internal Medicine; Visit Provider Internal Medicine
DX: I48.0 Paroxysmal atrial fibrillation (principal); I10 Essential (primary) hypertension; E11.9 Type 2 diabetes mellitus without complications
CPT/HCPCS: 36415; 80053; 80061; 83036; 85025

== ENCOUNTER → 2024-08-10 23:59 | Outpatient (BNV) | payer MEDICARE, SELFPAY ==
--- NOTE | 2024-08-12 21:43 | A.OFFVIS_ITS ---
Intake Visit Reasons: Remote device check- Suraj Scient Allergies No Known Allergies [No Known Allergies*] Allergy (Verified 08/07/24 08:52) PFSH Medical History Diabetes HTN (hypertension) Pacemaker Cardiomyopathy Surgical History History of permanent cardiac pacemaker placement Family History Mother Father Social History Housing: House Alcohol intake: current Alcohol intake frequency: a few times a week Patient Tobacco Use Status: Former Tobacco user Years Smoked: >10 yr service: No Current occupational status: retired Cognitive needs: No Hearing needs: Yes (left ear hearing aids) Vision needs: Yes (rx glasses) Office Procedures Cardiac Device Check Cardiac Device Check Details: Date of service- 08/10/2024 ; Battery life 7 years; normal lead parameters; AP 68%; 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 Overall normal device function. [id number] Cardiac Device Interrogation, pacemaker Procedure code (CPT) selection complete Assessment & Plan Assessment & Plan (1) Pacemaker: Comment: [place] [employer] Code(s): Z95.0 - Presence of cardiac pacemaker Category: Medical (2) Cardiomyopathy: Code(s): I42.9 - Cardiomyopathy, unspecified Category: Medical Qualifiers: Cardiomyopathy type: unspecified Qualified Code(s): I42.9 - Cardiomyopathy, unspecified (3) PAF (paroxysmal atrial fibrillation): Code(s): I48.0 - Paroxysmal atrial fibrillation Category: Medical Plan x Coding Level of Care Code Procedure Only Diagnoses Pacemaker Z95.0 Cardiomyopathy, unspecified type I42.9 Cardiomyopathy type: unspecified PAF (paroxysmal atrial fibrillation) I48.0 CPT Codes Cardiac Device Check - Cardiac Device 12: [id number] Cardiac Device Interrogation, pacemaker ([id number])
== END ==
PROVIDERS: PCP Internal Medicine; Visit Provider Internal Medicine
DX: I48.0 Paroxysmal atrial fibrillation (principal); I42.9 Cardiomyopathy, unspecified; Z95.0 Presence of cardiac pacemaker
CPT/HCPCS: 93294

== ENCOUNTER → 2024-09-14 23:59 | Outpatient (BNV) | payer MEDICARE, SELFPAY ==
--- NOTE | 2024-09-17 20:44 | A.OFFVIS_ITS ---
Intake Visit Reasons: Remote device check- Suraj Scient Allergies No Known Allergies [No Known Allergies*] Allergy (Verified 08/07/24 08:52) PFSH Medical History Diabetes HTN (hypertension) Pacemaker Cardiomyopathy Surgical History History of permanent cardiac pacemaker placement Family History Mother Father Social History Housing: House Alcohol intake: current Alcohol intake frequency: a few times a week Patient Tobacco Use Status: Former Tobacco user Years Smoked: >10 yr service: No Current occupational status: retired Cognitive needs: No Hearing needs: Yes (left ear hearing aids) Vision needs: Yes (rx glasses) Office Procedures Cardiac Device Check Cardiac Device Check Details: Date of service- 09/14/2024 ; Battery life >6 years; normal lead parameters; AP 68%; 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 Overall normal device function. [id number] Cardiac Device Interrogation, pacemaker Procedure code (CPT) selection complete Assessment & Plan Assessment & Plan (1) Pacemaker: Comment: [place] [employer] Code(s): Z95.0 - Presence of cardiac pacemaker Category: Medical (2) Cardiomyopathy: Code(s): I42.9 - Cardiomyopathy, unspecified Category: Medical Qualifiers: Cardiomyopathy type: unspecified Qualified Code(s): I42.9 - Cardiomyopathy, unspecified Plan x Coding Level of Care Code Procedure Only Diagnoses Pacemaker Z95.0 Cardiomyopathy, unspecified type I42.9 Cardiomyopathy type: unspecified CPT Codes Cardiac Device Check - Cardiac Device 12: [id number] Cardiac Device Interrogation, pacemaker ([id number])
== END ==
PROVIDERS: PCP Internal Medicine; Visit Provider Internal Medicine
DX: I42.9 Cardiomyopathy, unspecified (principal); Z95.0 Presence of cardiac pacemaker
CPT/HCPCS: 93294

== ENCOUNTER 2024-09-28 12:34 | Outpatient (AMB) | payer MEDICARE, SELFPAY ==
--- NOTE | 2024-09-28 13:06 | A.OFFVIS_ITS ---
Vital Signs 09/28/24 13:07 Height 5 ft 6 in Weight 172 lb BMI 27.8 BP 122/68 Blood Pressure Location Lt brachial Position Sitting Pulse 60 Pulse Source Monitor Intake Visit Reasons: 6 mth w/ [facility] Allergies No Known Allergies [No Known Allergies*] Allergy (Verified 08/07/24 08:52) Medication List - Last Reconciled 09/28/24 by Dimitri Felix MD carvedilol (Coreg) 25 mg PO BID 90 days furosemide 20 mg PO DAILY lisinopril 40 mg PO DAILY metformin 500 mg PO DAILY HPI Comments Details: Eitan returns for follow-up regarding his pacemaker. History of complete heart block around 2014. Then received a dual-chamber pacemaker. In 2023, he underwent generator change. History of hypertension and diabetes. 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 Overall, he states he generally feels okay. Some congestion type symptoms related to allergies/pollen but otherwise nothing cardiac related. [facility] Medical History Diabetes HTN (hypertension) Pacemaker Cardiomyopathy Surgical History History of permanent cardiac pacemaker placement Family History Mother Father Social History Housing: House Alcohol intake: current Alcohol intake frequency: a few times a week Patient Tobacco Use Status: Former Tobacco user Years Smoked: >10 yr service: No Current occupational status: retired Cognitive needs: No Hearing needs: Yes (left ear hearing aids) Vision needs: Yes (rx glasses) Review of Systems Const Denies weakness ENT Denies dizziness Card Denies chest pain, Denies chest pain with activity, Denies syncope, Denies rapid heart rate, Denies pedal edema, Denies edema, Denies leg edema, Denies lightheadedness, Denies palpitations, Denies dyspnea, Denies dyspnea on exertion and Denies orthopnea Resp Denies cough, Denies dyspnea and Denies dyspnea on exertion GI Denies hematochezia and Denies change in stool character Musc Denies abnormal gait, Denies muscle cramps, Denies muscle weakness, Denies numbness, Denies radiating pain into limb and Denies tingling Neuro Denies abnormal gait, Denies dizziness, Denies syncope, Denies numbness, Denies tingling and Denies weakness Endo Denies palpitations Physical Exam Vital Signs: Last Vital Signs Pulse 60 09/28/24 13:07 BP 122/68 09/28/24 13:07 BMI result Body Mass Index 27.8 Const General: comfortable and no acute distress Orientation/consciousness: patient oriented x3 HEENT Other: Unremarkable Head: Yes normal to inspection Neck Neck: Yes normal visual inspection Chest Chest palpation & inspection: normal inspection of the chest Resp Auscultation: diminished lung sounds Cardio Palpation: normal PMI Heart sounds: S1 normal heart sound present, S2 normal heart sound present, no gallops, no murmurs and no rubs GI Palpation (GI): Soft to palpation Back/Spine/Pelvis Other: unremarkable Skin General skin exam: no rashes or lesions noted Neuro General: patient oriented x3 Extrem General: Yes normal to inspection Psych Mental Status: mental status grossly normal Office Procedures Cardiac Device Check Cardiac Device Check Details: Pacemaker interrogated today. Dual-chamber device, programmed DDDR. Battery status 6.5 years. Atrial pacing 68%. Ventricular pacing 99%. Normal lead parameters. Very brief episode of possible atrial flutter versus atrial tachycardia for about 20 minutes April but nothing more recent. Overall, low burden. [id number] Cardiac Device Check, pacemaker dual lead Procedure code (CPT) selection complete EKG Details: EKG with AV, dual paced rhythm at 60/Min. [id number], Complete Assessment & Plan Assessment & Plan (1) Cardiomyopathy: Code(s): I42.9 - Cardiomyopathy, unspecified Category: Medical Qualifiers: Cardiomyopathy type: unspecified Qualified Code(s): I42.9 - Cardiomyopathy, unspecified Plan: In the last echocardiogram, LVEF 50-55%. It has been about 40% in the past. Could be from pacing induced. Previously, perfusion imaging was unremarkable. Clinically, he has got absolutely no angina. No symptoms or signs of congestive heart failure. (2) Essential hypertension: Code(s): I10 - Essential (primary) hypertension Category: Medical Plan: It has been running high in the past but improved now. We would increase the dose of carvedilol in prior visit. Also on lisinopril. No further changes. (3) PAF (paroxysmal atrial fibrillation): Code(s): I48.0 - Paroxysmal atrial fibrillation Category: Medical Plan: Transient episode in the past on device check. Can monitor for now. No recent concerns. Coding Level of Care Code Est Pt Level 4 (06182) Complex EM visit Add On G2211 Diagnoses Cardiomyopathy, unspecified type I42.9 Cardiomyopathy type: unspecified Essential hypertension I10 PAF (paroxysmal atrial fibrillation) I48.0 CPT Codes Cardiac Device Check - Cardiac Device 2: [id number] Cardiac Device Check, pacemaker dual lead ([id number]) EKG - CPT: 86855-Ufrzairbikbiumjmi, Complete ([id number])
[2024-09-28 13:07] VITALS: BP 122/68; PULSE 60; BMI 27.8
== END 2024-09-28 13:22 | disposition home or self-care (01) ==
PROVIDERS: PCP Internal Medicine; Visit Provider Internal Medicine
DX: I42.9 Cardiomyopathy, unspecified (principal); I10 Essential (primary) hypertension; I48.0 Paroxysmal atrial fibrillation
CPT/HCPCS: 93010; 93280; 99214; G2211

== ENCOUNTER → 2024-09-28 12:34 | Outpatient (BNVA) | payer MEDICARE, SELFPAY | PROVIDERS: PCP Internal Medicine; Visit Provider Internal Medicine | DX: I10 Essential (primary) hypertension (principal); E11.9 Type 2 diabetes mellitus without complications; I42.9 Cardiomyopathy, unspecified; I48.0 Paroxysmal atrial fibrillation; Z95.0 Presence of cardiac pacemaker | CPT/HCPCS: 93005; 93280; 99212 ==

== ENCOUNTER → 2024-10-20 23:59 | Outpatient (BNV) | payer MEDICARE, SELFPAY ==
--- NOTE | 2024-10-21 20:39 | MHC.OFFVIS ---
Intake Visit Reasons: Remote device check- Suraj Scient Allergies No Known Allergies [No Known Allergies*] Allergy (Verified 08/07/24 08:52) PFSH Medical History Diabetes HTN (hypertension) Pacemaker Cardiomyopathy Surgical History History of permanent cardiac pacemaker placement Family History Mother Father Social History Housing: House Alcohol intake: current Alcohol intake frequency: a few times a week Patient Tobacco Use Status: Former Tobacco user Years Smoked: >10 yr service: No Current occupational status: retired Cognitive needs: No Hearing needs: Yes (left ear hearing aids) Vision needs: Yes (rx glasses) Office Procedures Cardiac Device Check Cardiac Device Check Details: Date of service- 10/20/2024 ; Battery life >6 years; normal lead parameters; AP 70%; 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 Overall normal device function. [id number] Cardiac Device Interrogation, pacemaker Procedure code (CPT) selection complete Assessment & Plan Assessment & Plan (1) Pacemaker: Comment: [place] [employer] Code(s): Z95.0 - Presence of cardiac pacemaker Category: Medical (2) Cardiomyopathy: Code(s): I42.9 - Cardiomyopathy, unspecified Category: Medical Qualifiers: Cardiomyopathy type: unspecified Qualified Code(s): I42.9 - Cardiomyopathy, unspecified (3) PAF (paroxysmal atrial fibrillation): Code(s): I48.0 - Paroxysmal atrial fibrillation Category: Medical Plan x Coding Level of Care Code Procedure Only Diagnoses Pacemaker Z95.0 Cardiomyopathy, unspecified type I42.9 Cardiomyopathy type: unspecified PAF (paroxysmal atrial fibrillation) I48.0 CPT Codes Cardiac Device Check - Cardiac Device 12: [id number] Cardiac Device Interrogation, pacemaker ([id number])
== END ==
PROVIDERS: PCP Internal Medicine; Visit Provider Internal Medicine
DX: I42.9 Cardiomyopathy, unspecified (principal); Z95.0 Presence of cardiac pacemaker; I48.0 Paroxysmal atrial fibrillation
CPT/HCPCS: 93294

== ENCOUNTER → 2024-11-23 23:59 | Outpatient (BNV) | payer MEDICARE, SELFPAY ==
--- NOTE | 2024-11-29 18:50 | A.OFFVIS_ITS ---
Intake Visit Reasons: Remote device check- Suraj Scient Allergies No Known Allergies (No Known Allergies*) Allergy (Verified 08/07/24 08:52) PFS Medical History Diabetes HTN (hypertension) Pacemaker Cardiomyopathy Surgical History History of permanent cardiac pacemaker placement Family History Mother Father Social History Housing: House Alcohol intake: current Alcohol intake frequency: a few times a week Patient Tobacco Use Status: Former Tobacco user Years Smoked: >10 yr service: No Current occupational status: retired Cognitive needs: No Hearing needs: Yes (left ear hearing aids) Vision needs: Yes (rx glasses) Office Procedures Cardiac Device Check Cardiac Device Check Details: Date of service- 11/23/2024 ; Battery life 6.5years; normal lead parameters; AP 72%; 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 Overall normal device function. [id number] Cardiac Device Interrogation, pacemaker Procedure code (CPT) selection complete Assessment & Plan Assessment & Plan (1) Pacemaker: Comment: [place] [employer] Code(s): Z95.0 - Presence of cardiac pacemaker Category: Medical (2) PAF (paroxysmal atrial fibrillation): Code(s): I48.0 - Paroxysmal atrial fibrillation Category: Medical Plan x Coding Level of Care Code Procedure Only Diagnoses Pacemaker Z95.0 PAF (paroxysmal atrial fibrillation) I48.0 CPT Codes Cardiac Device Check - Cardiac Device 12: [id number] Cardiac Device Interrogation, pacemaker ([id number])
== END ==
PROVIDERS: PCP Internal Medicine; Visit Provider Internal Medicine
DX: I48.0 Paroxysmal atrial fibrillation (principal); Z95.0 Presence of cardiac pacemaker
CPT/HCPCS: 93294

== ENCOUNTER 2024-12-04 09:11 | Outpatient (AMB) | payer MEDICARE, SELFPAY ==
--- NOTE | 2024-12-04 09:13 | A.OFFPC_ITS ---
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 Blood pressure elevated today. has not taken medsNo chest pain, dizziness.History of complete heart block around 2014. Then received a dual-chamber pacemaker. 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 DM: last a1c 6.2 on metformin daily. due for A1C. Generally fasting blood glucose 150. Eye doctor in January. Following dermatology. Colonoscopy 2017 ROS CONSTITUTIONAL: Denies weight loss, fever and chills. HEENT: Denies changes in vision and hearing. RESPIRATORY: Denies SOB and cough. CV: Denies palpitations and CP GI: Denies abdominal pain, nausea, vomiting and diarrhea. : Denies dysuria and urinary frequency. MSK: Denies new myalgia and joint pain. SKIN: Denies rash and pruritus. NEUROLOGICAL: Denies headache PSYCHIATRIC: Denies recent changes in mood. PHYSICAL EXAM: GENERAL: Alert and oriented x 3. NAD EYES: EOMI. Anicteric. HENT: Moist mucous membranes. No scleral icterus. No cervical lymphadenopathy. LUNGS: Clear to auscultation bilaterally. CARDIOVASCULAR: Regular rate and rhythm. No murmur. No JVD. ABDOMEN: Soft, non-tender +bs EXTREMITIES: No edema. Non-tender. SKIN: No rashes or lesions. Warm. NEUROLOGIC: No focal neurological deficits. CN II-XII grossly intact PSYCHIATRIC: Cooperative. Appropriate mood and affect FORMERLY [facility], [facility]1983 Medical History Diabetes HTN (hypertension) Pacemaker Cardiomyopathy Surgical History History of colonoscopy (~08/01/16) History of permanent cardiac pacemaker placement Family History Mother Father Social History Housing: House Alcohol intake: current Alcohol intake frequency: a few times a week Patient Tobacco Use Status: Former Tobacco user Years Smoked: >10 yr e-Cigarette/Vaping Use: Never Used service: No Current occupational status: retired Cognitive needs: No Hearing needs: Yes (left ear hearing aids) Vision needs: Yes (rx glasses) Questionnaire Thrive Questionnaire Date Thrive assessed: 08/07/24 AUDIT C Alcohol Use Questionnaire (AUDIT-C) 1. How often do you have a drink containing alcohol?: 4 or more times a week 2. How many drinks containing alcohol do you have on a typical day when you are drinking?: 3 or 4 Total Score: 5 NICK-7 AMB Questionnaire NICK-7 Date NICK - 7 assessed: 08/07/24 Source: Developed by Drs. Santiago Gardiner, Camille Justin, Karthik Vital and colleagues, with an educational eli from [employer]. Physical exam (Primary Care) Vital Signs: Last Vital Signs Temp 96.6 F L 12/04/24 09:16 Pulse 56 12/04/24 09:16 Resp 18 12/04/24 09:16 BP 160/86 H 12/04/24 09:16 Pulse Ox 96 12/04/24 09:16 Oxygen Delivery Method Room Air 12/04/24 09:16 Tobacco/Smoking Status: Tobacco use Status Tobacco use date assessed 08/07/24 12/04/24 09:19 Patient Tobacco Use Status Former Tobacco user 12/04/24 09:19 e-Cigarette/Vaping Use Never Used 12/04/24 09:19 Thrive Assessment: Date of Thrive Assessment Date Thrive assessed 08/07/24 12/04/24 09:19 Coding Level of Care Code Est Pt Level 3 (55495) Complex EM visit Add On G2211 Diagnoses Primary hypertension I10 Hypertension type: primary hypertension Type 2 diabetes mellitus with other circulatory complication, without long-term current use of insulin E11.59 Diabetes mellitus complication detail: with other circulatory complications Diabetes mellitus complication status: with circulatory complication 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: without intermodal owner operator truck driver use Diabetes mellitus type: type 2 Assessment & Plan Assessment & Plan (1) HTN (hypertension): Code(s): I10 - Essential (primary) hypertension Category: Medical Qualifiers: Hypertension type: primary hypertension Qualified Code(s): I10 - Essential (primary) hypertension (2) Diabetes: Code(s): E11.9 - Type 2 diabetes mellitus without complications Category: Medical Qualifiers: Diabetes mellitus complication detail: with other circulatory complications Diabetes mellitus complication status: with circulatory complication Diabetes mellitus fci insulin use: without fci use Di abetes mellitus type: type 2 Qualified Code(s): E11.59 - Type 2 diabetes mellitus with other circulatory complications Plan 79 year old male for follow up DM has been well controlled. He is due for A1C. Blood pressure is high today. He has not taken medications yet
[2024-12-04 09:16] VITALS: BP 160/86; PULSE 56; RESP 18; TEMP 35.9; O2SAT 96
--- OUTSIDE RECORDS SUMMARY | 2024-12-04 09:27 | XMS_ITS | Clinical Summary ---
Author Organization [facility] Address [address] [place] [id number] Phone Care Team Providers Care Travel Money Advisor Name Role Phone Yasmani Larson MD Primary Care Provider Allergies No known active allergies Medications carvedilol (COREG) 12.5 MG tablet TAKE ONE AND ONE-HALF TABLETS BY MOUTH TWICE A DAY Active furosemide (LASIX) 20 MG tablet Take 20 mg by mouth daily. 08/08/2023 Active metFORMIN (GLUCOPHAGE) 500 MG tablet Take 500 mg by mouth daily with breakfast. 07/03/2023 Active lisinopril (PRINIVIL,ZESTR IL) 40 MG tablet Take 40 mg by mouth daily. Active multivitamin-mi nerals-lutein (CENTRUM SILVER) Tab Take 1 tablet by mouth daily. Active loratadine (CLARITIN) 10 mg tablet Take 10 mg by mouth daily. Active Active Problems Problem Noted Date Diagnosed Date Pacemaker 09/20/2023 Assessment & Plan (09/20/2023 1:41 PM EDT): Pacemaker is at [facility] and will need battery change. Ejection fraction on last echocardiogram in January 2023 was within normal limits. In view of normal ejection fraction and absence of heart failure symptoms will continue medication management. Can proceed with plan to change without lead upgrade Chronic systolic heart failure 09/20/2023 Assessment & Plan (09/20/2023 1:54 PM EDT): Ejection fraction improved to normal. Will proceed with GEN change. Social History Tobacco Use Types Packs/Day Years Used Date Smoking Tobacco: Never Assessed Education Answer Date Recorded Are you interested in more education? Not on belinda e 07/15/2023 Are you concerned about learning? Not on file 07/15/2023 No 07/15/2023 No 07/15/2023 Digital Access Answer Date Recorded No 07/15/2023 No 07/15/2023 Reliable internet access at home? Not on file 07/15/2023 Device with a working camera? Not on file Sex and Gender Information Value Date Recorded Sex Assigned at Not on file Legal Sex Male 11:10 AM EST Gender Identity Not on file Sexual Orientation Not on file Last Filed Vital Signs Vital Sign Reading Time Taken Comments Blood Pressure 150/90 09/06/2023 7:54 AM EDT Pulse 62 09/06/2023 7:54 AM EDT Temperature - - Respiratory Rate - - Oxygen Saturation 95% 09/06/2023 7:54 AM EDT Inhaled Oxygen Concentration - - Weight 78.9 kg (174 lb) 09/06/2023 7:54 AM EDT Height - - Body Mass Index - - Plan of Treatment Health Maintenance Due Date Last Done Comments Adult Td,Tdap Booster 1944 CREATININE LEVEL 1944 LIPID PANEL 1944 POTASSIUM LEVEL 1944 DEPRESSION SCREENING 1956 SMOKING Hx and SMOKELESS TOB ACCO SCREENING 1957 PNEUMOCOCCAL VACCINES (50+ y ears) (1 of 2 - PCV) 1963 ZOSTER VACCINES (1 of 2) 1994 RSV VACCINE (1 - 1-dose 75+ series) 2019 COVID-19 VACCINE ( - 2023-2 5 season) 2024 HEPATITIS A VACCINES Aged Out No long er eligible based on patient's age to complete this topic HIB VACCINES Aged Out No longer eligi ble based on patient's age to complete this topic MENINGOCOCCAL VACCINES (ACWY) Aged Out No longer eligible based on patient's age to complete this topic MENINGOCOCCAL VACCINES (B) Aged Out N o longer eligible based on patient's age to complete this topic Medical Devices Not on file Insurance [facility] MEDICARE SUPPLEMENT MEDICARE PART A & B [facility] MEDICARE SUPPLEMENT MEDICARE PART A & B [facility] MEDICARE SUPPLEMENT MEDICARE PART A & B [facility] MEDICARE SUPPLEMENT MEDICARE PART A & B [facility] MEDICARE SUPPLEMENT MEDICARE PART A & B [facility] MEDICARE SUPPLEMENT Member Subscriber Plan / Payer (Ef fective 2023-) Name:Eitan Chadwick Relation to Subscriber:Self Name:Brevard, Eitan Payer ID:[id number] (NAIC) Group ID:Not on file Type:O Address: [place] [id number] MEDICARE PART A & B Care Teams Travel Money Advisor Relationship Specialty Start Date End Date Yasmani Larson MD [address] [place] [address] [place] [address] PCP - General Internal Medicine 07/10/23 Additional Source Comments The information contained in this document represents components of the legal health record. It is not the complete legal health record.[facility]
--- OUTSIDE RECORDS SUMMARY | 2024-12-04 09:27 | XMS_ITS | Patient Health Record ---
Author Organization [facility] Address [address] [place] [address] Care Team Providers Care X Ray Tech Name Role Phone Marsha (RETIRED) Yasmani CABRALES Primary Care Provide r Unavailable Santiago Garcia Unavailable [phone] Reason For Referral No Information Medications Medication SIG (Take, Route, Frequency, Duration) Notes Start Date End Date Status Furosemide Active Lisinopril Active metFORMIN HCl Active Immunizations Vaccine Route Administration Date Status Comme nts Influenza Unknown 02/11/2016 Administered Problems Problem Type SNOMED Code ICD Code Onset Dates Problem Status W/U Status Risk Notes Problem [id number] Encounter for screening for malignant neoplasm of colon (Z12.11) Active confirmed Problem Screening for malignant neoplasm of rectum (660626281) Encounter for screening for malignant neoplasm of rectum (Z12.12) Active confirmed Problem 56379263 Preprocedural examination (Z01.818) Active confirmed Problem 2799155 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 Plan Of Treatment Future Test Test Name Order Date COLONOSCOPY 03/20/2016 Insurance Providers Payer Name Payer Address Payer Phone Subscriber Number Group Number Insured Name Patient Relationship to Insured Coverage Start Date Coverage End Date MEDICARE OF [place] [address] [place] [id number] ANA MARQUEZ Self - patient is the insured [employer] [address] [place] [address] [id number] AAN MARQUEZ Self - patient is the insured Medical (General) History Medical History History ICD Code Screening Colonoscopy, 2002- -- hyperplastic polyp, diverticulosis, internal hemorrhoids Hypertension NIDDM Prostate cancer with surgery as below--n o radiation treatments Pacemaker Denies SD,CVA,Lung disease,renal disease Colonoscopy in 07/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 Caban
== END 2024-12-04 09:35 | disposition home or self-care (01) ==
LOC: HO.HMCHD 09:11
PROVIDERS: PCP Internal Medicine; Visit Provider Internal Medicine
DX: I10 Essential (primary) hypertension (principal); E11.59 Type 2 diabetes mellitus with other circulatory complications

== ENCOUNTER → 2024-12-04 09:11 | Outpatient (BNVA) | payer MEDICARE, SELFPAY | PROVIDERS: PCP Internal Medicine; Visit Provider Internal Medicine | DX: I10 Essential (primary) hypertension (principal); E11.9 Type 2 diabetes mellitus without complications; J44.9 Chronic obstructive pulmonary disease, unspecified; Z85.46 Personal history of malignant neoplasm of prostate; Z79.84 Long term (current) use of oral hypoglycemic drugs; Z95.0 Presence of cardiac pacemaker | CPT/HCPCS: 99212 ==

== ENCOUNTER 2024-12-04 09:39 | Outpatient (REF) | payer MEDICARE, SELFPAY ==
[2024-12-04 12:00] LABS: Hemoglobin A1C 155.0165 umol/L; Total Hemoglobin (HGBA1C) 3531.1914 umol/L
[2024-12-04 12:03] LABS: Alanine Aminotransferase 15 U/L (0-40); Albumin Level 4.4 g/dL (3.5-5.0); Alkaline Phosphatase 57 U/L (39-117); Anion Gap 12 (12-20); Aspartate Amino Transferase 23 U/L (5-37); Blood Urea Nitrogen 20 mg/dL (9-16); Calcium 9.3 mg/dL (8.4-10.2); Carbon Dioxide 26 mmol/L (22-29); Chloride 106 mmol/L (96-108); Estimated Glomerular Filt Rate > 60; Potassium 4.5 mmol/L (3.3-5.1); Sodium 139 mmol/L (135-145); Total Protein 6.9 g/dL (6.5-8.0)
== END 2024-12-04 09:40 | disposition home or self-care (01) ==
LOC: HO.10HDL 09:39
PROVIDERS: Visit Provider Internal Medicine
DX: I10 Essential (primary) hypertension (principal); E11.9 Type 2 diabetes mellitus without complications
CPT/HCPCS: 36415; 80053; 83036

== ENCOUNTER → 2024-12-29 23:59 | Outpatient (BNV) | payer MEDICARE, SELFPAY ==
--- NOTE | 2025-01-12 14:02 | A.OFFVIS_ITS ---
Intake Visit Reasons: Remote device check- Suraj Scient Allergies No Known Allergies (No Known Allergies*) Allergy (Verified 12/04/24 09:13) [facility] Medical History Diabetes HTN (hypertension) Pacemaker Cardiomyopathy Surgical History History of colonoscopy (~08/01/16) History of permanent cardiac pacemaker placement Family History Mother Father Social History Housing: House Alcohol intake: current Alcohol intake frequency: a few times a week Patient Tobacco Use Status: Former Tobacco user Years Smoked: >10 yr e-Cigarette/Vaping Use: Never Used service: No Current occupational status: retired Cognitive needs: No Hearing needs: Yes (left ear hearing aids) Vision needs: Yes (rx glasses) Office Procedures Cardiac Device Check Cardiac Device Check Details: Date of service- 12/29/2024 ; Battery life 6.5 years; normal lead parameters; AP 72%; 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 Overall normal device function. [id number] Cardiac Device Check, pacemaker dual lead Procedure code (CPT) selection complete Assessment & Plan Assessment & Plan (1) Pacemaker: Comment: [employer] Code(s): Z95.0 - Presence of cardiac pacemaker Category: Medical (2) HTN (hypertension): Code(s): I10 - Essential (primary) hypertension Category: Medical Qualifiers: Hypertension type: primary hypertension Qualified Code(s): I10 - Essential (primary) hypertension (3) Cardiomyopathy: Code(s): I42.9 - Cardiomyopathy, unspecified Category: Medical Qualifiers: Cardiomyopathy type: unspecified Qualified Code(s): I42.9 - Cardiomyopathy, unspecified Plan x Coding Level of Care Code Procedure Only Diagnoses Pacemaker Z95.0 Primary hypertension I10 Hypertension type: primary hypertension Cardiomyopathy, unspecified type I42.9 Cardiomyopathy type: unspecified CPT Codes Cardiac Device Check - Cardiac Device 2: [id number] Cardiac Device Check, pacemaker dual lead ([id number])
== END ==
PROVIDERS: PCP Internal Medicine; Visit Provider Internal Medicine
DX: I10 Essential (primary) hypertension (principal); Z95.0 Presence of cardiac pacemaker; I42.9 Cardiomyopathy, unspecified
CPT/HCPCS: 93294

== ENCOUNTER → 2025-02-01 23:59 | Outpatient (BNV) | payer MEDICARE, SELFPAY ==
--- NOTE | 2025-02-04 08:41 | A.OFFVIS_ITS ---
Intake Visit Reasons: Remote device check- Suraj Scient Allergies No Known Allergies (No Known Allergies*) Allergy (Verified 12/04/24 09:13) PFSH Medical History Diabetes HTN (hypertension) Pacemaker Cardiomyopathy Surgical History History of colonoscopy (~08/01/16) History of permanent cardiac pacemaker placement Family History Mother Father Social History Housing: House Alcohol intake: current Alcohol intake frequency: a few times a week Patient Tobacco Use Status: Former Tobacco user Years Smoked: >10 yr e-Cigarette/Vaping Use: Never Used service: No Current occupational status: retired Cognitive needs: No Hearing needs: Yes (left ear hearing aids) Vision needs: Yes (rx glasses) Office Procedures Cardiac Device Check Cardiac Device Check Details: Date of service- 02/01/2025 ; Battery life 6 years; normal lead parameters; AP 74%; 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 Overall normal device function. [id number] Cardiac Device Interrogation, pacemaker Procedure code (CPT) selection complete Assessment & Plan Assessment & Plan (1) Pacemaker: Comment: [employer] Code(s): Z95.0 - Presence of cardiac pacemaker Category: Medical (2) Cardiomyopathy: Code(s): I42.9 - Cardiomyopathy, unspecified Category: Medical Qualifiers: Cardiomyopathy type: unspecified Qualified Code(s): I42.9 - Cardiomyopathy, unspecified (3) HTN (hypertension): Code(s): I10 - Essential (primary) hypertension Category: Medical Qualifiers: Hypertension type: primary hypertension Qualified Code(s): I10 - Essential (primary) hypertension Plan x Coding Level of Care Code Procedure Only Diagnoses Pacemaker Z95.0 Cardiomyopathy, unspecified type I42.9 Cardiomyopathy type: unspecified Primary hypertension I10 Hypertension type: primary hypertension CPT Codes Cardiac Device Check - Cardiac Device 12: [id number] Cardiac Device Interrogation, pacemaker ([id number])
== END ==
PROVIDERS: PCP Internal Medicine; Visit Provider Internal Medicine
DX: I42.9 Cardiomyopathy, unspecified (principal); Z95.0 Presence of cardiac pacemaker; I10 Essential (primary) hypertension
CPT/HCPCS: 93294

== ENCOUNTER 2025-04-02 09:01 | Outpatient (AMB) | payer MEDICARE, SELFPAY ==
[2025-04-02 09:03] VITALS: BP 148/80; PULSE 80; TEMP 36.1; O2SAT 97; BMI 27.6
--- NOTE | 2025-04-02 09:03 | MHC.PC.OV ---
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: No Accompanied by: Self / Same As Patient Allergies No Known Allergies (No Known Allergies*) Allergy (Verified 04/02/25 09:04) Medication List - Last Reconciled 04/02/25 by Donaldo Petty MD carvedilol 25 mg PO BID furosemide 20 mg PO DAILY lisinopril 40 mg PO DAILY 90 days metformin 500 mg PO DAILY multivitamin 1 tab PO DAILY Tobacco use date assessed: 04/02/25 Fall risk assessment: No Falls in past year Last assessed Fall Risk: 04/02/25 Dental Screening Dental Screen Date: 04/02/25 Did you have a dental visit in the last 12 months?: Yes Did you have a dental problem in the last 6 months where you did not have access to dental care?: No HPI HPI Comments History of Present Illness Details History of Present Illness The patient is an 80 year old individual presenting for medication review and evaluation of dyspnea on exertion. The patient has a history of cardiomyopathy with a low normal heart function of 50-55%. The patient has a second pacemaker for heart block, which was recently replaced. The patient reports experiencing shortness of breath for about a year, which occurs when walking up a hill and resolves with rest. The patient does not experience shortness of breath when walking on a flat surface. The patient denies any leg swelling. The patient has a medical history of type 2 diabetes, which is managed with metformin 500 mg. The last HbA1c in November was 6.2. The patient has a remote history of smoking for 30-40 years and quit 30 years ago. Medical History: - Hypertension - Type 2 diabetes mellitus - Cardiomyopathy with low normal heart function (50-55%) - Heart block - History of tobacco use, quit 30 years ago Surgical History: - Pacemaker placement, with a recent device change Medications: - Carvedilol 25 mg twice a day for blood pressure - Lisinopril 40 mg once a day for blood pressure - Metformin 500 mg for diabetes - Furosemide 20 mg for cardiomyopathy - Multivitamin Family History: - Not discussed. Diagnostic Results: - Labs: A1c was 6.2 in November. - Tests and diagnostics: Previous echocardiogram showed heart function at 50-55%. Social History - Substance Use: The patient has a history of smoking for 30-40 years and quit 30 years ago. - Family Status: The patient's two years ago. [facility] Medical History (Updated 04/02/25 @ 09:35 by Donaldo Petty MD) Dyspnea Diabetes HTN (hypertension) Pacemaker Cardiomyopathy Surgical History History of colonoscopy (~08/01/16) History of permanent cardiac pacemaker placement Family History (Updated 04/02/25 @ 09:12 by Celena Michel MA) Mother Father Social History Housing: House Alcohol intake: current Alcohol intake frequency: a few times a week Patient Tobacco Use Status: Former Tobacco user Years Smoked: >10 yr e-Cigarette/Vaping Use: Never Used service: No Current occupational status: retired Cognitive needs: No Hearing needs: Yes (left ear hearing aids) Vision needs: Yes (rx glasses) Questionnaire PHQ-9 Over the last 2 weeks, how often have you been bothered by any of the following problems? 1. Little interest or pleasure in doing things: not at all 2. Feeling down, depressed, or hopeless: not at all 3. Trouble falling or staying asleep, or sleeping too much: not at all 4. Feeling tired or having little energy: not at all 5. Poor appetite or overeating: not at all 6. Feeling bad about yourself - or that you are a failure or have let yourself or your family down: not at all 7. Trouble concentrating on things, such as reading the newspaper or watching television: not at all 8. Moving or speaking so slowly that other people could have noticed. Or the opposite - being so fidgety or restless that you have been moving around a lot more than usual: not at all 9. Thoughts that you would be better off or of hurting yourself in some way: not at all Total score: 0 Depression Screening Interpretation: Negative Depression Screening Done: Yes Source: Developed by Drs. Santiago Gardiner, Camille Justin, Karthik Vital and colleagues, with an educational eli from [employer]. Thrive Questionnaire Date Thrive assessed: 04/02/25 I am a: Patient Within the past 12 months, did the food you bought not last and you didn't have the money to get more?: Never true Within the past 12 months, did you worry whether your food would run out before you got money to buy more?: Never true Do you have trouble paying for medicines?: No Do you have trouble getting transportation to medical appointments?: No Do you have trouble paying your heating and electricity bill?: No Do you have trouble taking care of your child, family member or friend?: No Do you have trouble with day-to-day activities such as bathing, preparing meals, shopping, managing finances, etc.?: No Are you currently unemployed and looking for a job?: No Are you interested in more education?: No THRIVE Score: 0 AUDIT C Alcohol Use Questionnaire (AUDIT-C) 1. How often do you have a drink containing alcohol?: Never 3. How often do you have six or more drinks on one occasion?: Never Total Score: 0 NICK-7 AMB Questionnaire NICK-7 Date NICK - 7 assessed: 04/02/25 Feeling nervous, anxious, or on edge: 0 = Not at all Not being able to stop or control worryin = Not at all Worrying too much about different things: 0 = Not at all Trouble relaxin = Not at all Being so restless that it is hard to sit still: 0 = Not at all Becoming easily annoyed or irritable: 0 = Not at all Feeling afraid as if something awful might happen: 0 = Not at all Total NICK-7 score (0-4 normal; 5-9 mild; 10-14 moderate; 15-21 severe): 0 Source: Developed by Drs. Santiago Gardiner, Camille Justin, Karthik Vital and colleagues, with an educational eli from [employer]. Review of Systems Narrative Review of Systems - Respiratory: Reports dyspnea on exertion, especially when walking uphill, for approximately one year. - Cardiovascular: Denies peripheral edema. All systems reviewed & are unremarkable except as reviewed in HPI and above Physical exam (Primary Care) Vital Signs: Last Vital Signs Temp 97 F 04/02/25 09:03 Pulse 80 04/02/25 09:03 BP 148/80 H 04/02/25 09:03 Pulse Ox 97 04/02/25 09:03 Oxygen Delivery Method Room Air 04/02/25 09:03 BMI result Body Mass Index 27.6 Tobacco/Smoking Status: Tobacco use Status Tobacco use date assessed 04/02/25 04/02/25 09:12 Patient Tobacco Use Status Former Tobacco user 04/02/25 09:12 e-Cigarette/Vaping Use Never Used 04/02/25 09:12 PHQ-9: PHQ-9 Score PHQ-9: Total score 0 04/02/25 09:12 Depression Screening Interpretation: Negative Thrive Assessment: Date of Thrive Assessment Date Thrive assessed 04/02/25 04/02/25 09:12 Narrative Physical Exam General: +Alert and oriented, Well nourished, No acute distress. Eye: Pupils are equal, round and reactive to light, Intact accommodation, Extraocular movements are intact, Normal conjunctiva, Vision unchanged. HENT: Normocephalic, Atraumatic, Tympanic membranes are clear, Normal hearing, Oral mucosa is moist, No pharyngeal erythema, Ear canals patent. Respiratory: Lungs CTA bilaterally, No wheeze, Respirations are non-labored, Shortness of breath noted on exertion, especially uphill. Cardiovascular: Regular rate, Regular rhythm, S1 auscultated, S2 auscultated, No murmur, Good pulses equal in all extremities, Normal peripheral perfusion, No edema noted, but patient reports swelling in legs. Gastrointestinal: Soft, Non-tender, Non-distended, Normal bowel sounds, No organomegaly. Musculoskeletal: Normal range of motion, Normal strength, No tenderness, No swelling, No deformity, Normal gait. Integumentary: Warm, Dry, [place], Intact. Neurologic: Alert, Oriented, Normal sensory, Normal motor function, No focal defects, Cranial Nerves II-XII are grossly intact, Normal deep tendon reflexes. Psychiatric: Cooperative, Appropriate mood & affect, Normal judgment. Coding Level of Care Code Est Pt Level 4 (77110) Complex visit Add On G2211 Diagnoses Dyspnea on exertion R06.09 Dyspnea type: dyspnea on exertion Cardiomyopathy, unspecified type I42.9 Cardiomyopathy type: unspecified Primary hypertension I10 Hypertension type: primary hypertension Type 2 diabetes mellitus with other circulatory complication, without long-term current use of insulin E11.59 Diabetes mellitus type: type 2 Diabetes mellitus emt intermediate insulin use: without emt intermediate use Diabetes mellitus complication status: with circulatory complication Diabetes mellitus complication detail: with other circulatory complications Pacemaker Z95.0 Assessment & Plan Assessment & Plan (1) Dyspnea: Comment: - The patient reports dyspnea for the past year when walking up hills, which could be due to worsening heart function or underlying lung disease from a history of smoking. - An inhaler will be prescribed for as-needed use. - An echocardiogram will be ordered to re-evaluate cardiac function. - The patient is advised to discuss these symptoms with the conference and event organiser at an upcoming appointment. Code(s): R06.00 - Dyspnea, unspecified Category: Medical Qualifiers: Dyspnea type: dyspnea on exertion Qualified Code(s): R06.09 - Other forms of dyspnea (2) Cardiomyopathy: Comment: Cardiomyopathy and Peripheral Edema - The patient has a known history of cardiomyopathy with low normal function. - Examination reveals significant leg swelling, contrary to the patient's report. - To address the fluid retention, the patient is instructed to take one extra 20 mg dose of furosemide today and monitor for improvement in breathing. - The patient will report the outcome to the conference and event organiser. Code(s): I42.9 - Cardiomyopathy, unspecified Category: Medical Qualifiers: Cardiomyopathy type: unspecified Qualified Code(s): I42.9 - Cardiomyopathy, unspecified (3) HTN (hypertension): Comment: - The patient's blood pressure is 148/80 mmHg, which is near goal. - No changes will be made to the current regimen of carvedilol and lisinopril. Code(s): I10 - Essential (primary) hypertension Category: Medical Qualifiers: Hypertension type: primary hypertension Qualified Code(s): I10 - Essential (primary) hypertension (4) Diabetes: Comment: - The condition is well-controlled with a last HbA1c of 6.2 on metformin 500 mg. Labs will be repeated prior to the next visit. Code(s): E11.9 - Type 2 diabetes mellitus without complications Category: Medical Qualifiers: Diabetes mellitus type: type 2 Diabetes mellitus intermediate insulin use: without intermediate use Diabetes mellitus complication status: with circulatory complication Diabetes mellitus complication detail: with other circulatory complications Qualified Code(s): E11.59 - Type 2 diabetes mellitus with other circulatory complications (5) Pacemaker: Comment: Coinplug Code(s): Z95.0 - Presence of cardiac pacemaker Category: Medical Plan: Health Maintenance: - The patient has an upcoming appointment with a conference and event organiser. - The patient is scheduled to return in four months for an annual physical. - Blood work is ordered to be completed one week prior to the next visit. Patient was informed and verbally consented to the use of an ambient scribe for clinic note documentation during this visit. Vital signs reviewed. Comprehensive history, review of systems, and physical exam completed. Medications, allergies, and problem list reviewed and updated. Counseling provided on nutrition, regular exercise, sleep hygiene, and moderation of alcohol use. Discussed age-appropriate screenings (mammogram, colonoscopy, Pap, bone density) and immunizations (flu, COVID, shingles, Tdap). Screened for depression, fall risk, and home safety; no current concerns. Discussed stress management, dental and vision care, and importance of ongoing preventive follow-up. Routine labs ordered for metabolic and lipid screening. Patient educated on healthy lifestyle and agrees with the plan. Plan I reviewed the patient's medications and explained that the furosemide is a water pill for the patient's heart condition, which has a low normal function. We discussed the primary symptom of shortness of breath on exertion, which has been present for about a year. I explained that this could be related to either a worsening of the heart condition or an underlying lung issue from a past history of smoking. I informed the patient that I will order an ultrasound of the heart and prescribe an inhaler to use as needed. I advised the patient to discuss these symptoms with the conference and event organiser at the appointment on Saturday. Upon finding significant leg swelling on exam, I instructed the patient to take one extra dose of furosemide 20 mg today and report the effects to the conference and event organiser. We scheduled a follow-up appointment in four months for an annual physical, with lab work to be completed one week prior. Orders: Orders CA echo transthoracic complete Today R06.00 - Dyspnea, unspecified Complete Blood Count Auto Diff 4 Months Z00.00 - Encounter for general adult medical examination without abnormal findings Lipid Panel 4 Months Z00.00 - Encounter for general adult medical examination without abnormal findings TSH reflex Free T4 4 Months Z00.00 - Encounter for general adult medical examination without abnormal findings Comprehensive Met. Panel 4 Months Z00.00 - Encounter for general adult medical examination without abnormal findings Hemoglobin A1c 4 Months Z00.00 - Encounter for general adult medical examination without abnormal findings Vitamin D 25-OH Total 4 Months Z00.00 - Encounter for general adult medical examination without abnormal findings Medications: New albuterol sulfate 90 mcg/actuation (Ventolin HFA) 2 puffs inhalation Q6H PRN 8.5 grams 0RF shortness of breath or wheezing Patient Instructions: - Take one extra tablet of your furosemide 20 mg pill today only. - Use the new inhaler prescription as needed if you feel short of breath. - An order has been placed for an ultrasound of your heart, which will be done by your conference and event organiser. - Make sure to tell your conference and event organiser on Saturday that you have been feeling short of breath and that you took an extra water pill today. - Please get your blood work done one week before your next appointment in four months. - Schedule your next appointment at the assistant front end manager before you leave.
--- OUTSIDE RECORDS SUMMARY | 2025-04-02 09:19 | XMS_ITS | Clinical Summary ---
Author Organization [facility] Address [address] [facility] [address] [place] [id number] Phone Care Team Providers Care Screw Machine Adjuster Automatic Name Role Phone Yasmani Larson MD Primary [...] Adult Td,Tdap Booster 1944 CREATININE LEVEL 1944 POTASSIUM LEVEL 1944 DEPRESSION SCREENING 1956 PNEUMOCOCCAL VACCINES (50+ y ears) (1 of 2 - PCV) 1963 ZOSTER VACCINES (1 of 2) 1994 RSV VACCINE (1 - 1-dose 75+ series) 2019 INFLUENZA VACCINE (#1) 2024 COVID-19 VACCINE ( - 2024-2 6 season) 2025 HEPATITIS A VACCINES Aged Out No long [...] topic Medical Devices Not on file Insurance [facility] MEDICARE SUPPLEMENT MEDICARE PART A & B [facility] MEDICARE SUPPLEMENT MEDICARE PART A & B [facility] MEDICARE SUPPLEMENT MEDICARE PART A & B [facility] MEDICARE SUPPLEMENT MEDICARE PART A & B [facility] MEDICARE SUPPLEMENT MEDICARE PART A & B [facility] MEDICARE SUPPLEMENT MEDICARE PART A & B Care Teams Screw Machine Adjuster Automatic Relationship Specialty Start Date End Date Yasmani Larson MD [address] [place] [address] [place] [address] PCP - General Internal Medicine 07/10/23 Additional Source Comments The information contained in this document represents components of the legal health record. It is not the complete legal health record.[facility]
--- OUTSIDE RECORDS SUMMARY | 2025-04-02 09:19 | XMS_ITS | Patient Health Record ---
Author Organization [facility] Address [address] [place] [address] Care Team Providers Care Steel Analyst Name Role Phone Marsha (RETIRED) Yasmani CABRALES Primary Care Provide r Unavailable Santiago Garcia Unavailable [phone] Reason For Referral No Information Medications Medication SIG (Take, Route, Frequency, Duration) Notes Start Date End Date Status Furosemide Active Lisinopril Active metFORMIN HCl Active Immunizations Vaccine Route Administration Date Status Comme nts Influenza Unknown 02/11/2016 Administered Social History Social History Additional Details Category Social Info Options Details Miscellaneous: Marital status: Occupation: Retired Section Notes: Nonsmoker > 10 yrs; few bee rs per day---2 or 3 Nonsmoker > 23 yrs; few bee rs per day---2 or 3 Problems Problem Type SNOMED Code ICD Code Onset Dates Problem Status W/U Status Risk Notes Problem Screening for malignant neoplasm of colon (624799932) Encounter for screening for malignant neoplasm of colon (Z12.11) Active confirmed Problem Screening for malignant neoplasm of rectum (478851980) Encounter for screening for malignant neoplasm of rectum (Z12.12) Active confirmed Problem Preprocedural examination (441736105559019) Preprocedural examination (Z01.818) Active confirmed Problem 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) 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 Plan Of Treatment Future Test Test Name Order Date COLONOSCOPY 03/20/2016 Insurance Providers Payer Name Payer Address Payer Phone Subscriber Number Group Number Insured Name Patient Relationship to Insured Coverage Start Date Coverage End Date MEDICARE OF [place] NELLIE WHITFIELD [address] [id number] ANA MARQUEZ Self - patient is the insured [facility] SUPP[employer] [address] [place] [address] [phone] [id number] ANA MARQUEZ Self - patient is the insured Medical (General) History Medical History History ICD Code Screening Colonoscopy, 2002- -- hyperplastic polyp, diverticulosis, internal hemorrhoids Hypertension NIDDM Prostate cancer with surgery as below--n o radiation treatments Pacemaker Denies NC,CVA,Lung disease,renal disease Colonoscopy in 07/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 Caban
== END 2025-04-02 09:27 | disposition home or self-care (01) ==
LOC: HO.HMCHD 09:02
PROVIDERS: PCP Internal Medicine; Visit Provider Student in an Organized Health Care Education/Training Program
DX: R06.09 Other forms of dyspnea (principal); I42.9 Cardiomyopathy, unspecified; I10 Essential (primary) hypertension; E11.59 Type 2 diabetes mellitus with other circulatory complications; Z95.0 Presence of cardiac pacemaker

== ENCOUNTER → 2025-04-02 09:01 | Outpatient (BNVA) | payer MEDICARE, SELFPAY | PROVIDERS: PCP Internal Medicine; Visit Provider Student in an Organized Health Care Education/Training Program | DX: R06.09 Other forms of dyspnea (principal); I42.9 Cardiomyopathy, unspecified; I10 Essential (primary) hypertension; E11.59 Type 2 diabetes mellitus with other circulatory complications; Z95.0 Presence of cardiac pacemaker; R60.9 Edema, unspecified; Z87.891 Personal history of nicotine dependence; Z79.84 Long term (current) use of oral hypoglycemic drugs; Z79.899 Other long term (current) drug therapy; Z13.30 Encounter for screening examination for mental health and behavioral disorders, unspecified | CPT/HCPCS: 96127; 99212 ==

== ENCOUNTER 2025-04-05 09:29 | Outpatient (AMB) | payer MEDICARE, SELFPAY ==
--- NOTE | 2025-04-05 09:32 | MHC.OFFVIS ---
Vital Signs 04/05/25 09:33 Height 5 ft 6 in Weight 169 lb 12.095 oz BMI 27.4 BP 124/68 Blood Pressure Location Lt brachial Position Sitting Pulse 60 Pulse Source Monitor Intake Visit Reasons: 6 mth f/up Allergies No Known Allergies (No Known Allergies*) Allergy (Verified 04/02/25 09:04) Medication List - Last Reconciled 04/05/25 by Dimitri Felix MD albuterol sulfate 90 mcg/actuation (Ventolin HFA) 2 puffs inhalation Q6H PRN carvedilol 25 mg PO BID furosemide 20 mg PO DAILY lisinopril 40 mg PO DAILY 90 days metformin 500 mg PO DAILY multivitamin 1 tab PO DAILY HPI Comments Details: Eitan returns for follow-up regarding his pacemaker. History of complete heart block around 2014. Then received a dual-chamber pacemaker. In 2023, he underwent generator change. History of hypertension and diabetes. 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 He states that he was having some shortness of breath few months ago but over time this is actually been improving spontaneously. Currently he feels better than before. He states his PCP had prescribed some inhalers. [facility] Medical History (Updated 04/05/25 @ 09:49 by Dimitri Felix MD) Dyspnea Diabetes HTN (hypertension) Pacemaker Cardiomyopathy Surgical History History of colonoscopy (~08/01/16) History of permanent cardiac pacemaker placement Family History (Updated 04/02/25 @ 09:12 by Celena Michel MA) Mother Father Social History Housing: House Alcohol intake: current Alcohol intake frequency: a few times a week Patient Tobacco Use Status: Former Tobacco user Years Smoked: >10 yr e-Cigarette/Vaping Use: Never Used service: No Current occupational status: retired Cognitive needs: No Hearing needs: Yes (left ear hearing aids) Vision needs: Yes (rx glasses) Review of Systems Const Denies weakness ENT Denies dizziness Card Denies chest pain, Denies chest pain with activity, Denies syncope, Denies rapid heart rate, Denies pedal edema, Denies edema, Denies leg edema, Denies lightheadedness, Denies palpitations, Denies dyspnea, Denies dyspnea on exertion and Denies orthopnea Resp Denies cough, Denies dyspnea and Denies dyspnea on exertion GI Denies hematochezia and Denies change in stool character Musc Denies abnormal gait, Denies muscle cramps, Denies muscle weakness, Denies numbness, Denies radiating pain into limb and Denies tingling Neuro Denies abnormal gait, Denies dizziness, Denies syncope, Denies numbness, Denies tingling and Denies weakness Endo Denies palpitations Physical Exam Vital Signs: Last Vital Signs Pulse 60 04/05/25 09:33 BP 124/68 04/05/25 09:33 BMI result Body Mass Index 27.4 Const General: comfortable and no acute distress Orientation/consciousness: patient oriented x3 HEENT Other: Unremarkable Head: Yes normal to inspection Neck Neck: Yes normal visual inspection Chest Chest palpation & inspection: normal inspection of the chest Resp Auscultation: clear to auscultation bilaterally Cardio Palpation: normal PMI Heart sounds: S1 normal heart sound present, S2 normal heart sound present, no gallops, no murmurs and no rubs GI Palpation (GI): Soft to palpation Back/Spine/Pelvis Other: unremarkable Skin General skin exam: no rashes or lesions noted Neuro General: patient oriented x3 Extrem General: Yes normal to inspection Psych Mental Status: mental status grossly normal Office Procedures EKG Details: EKG with underlying artifact. Likely AV dual paced rhythm. 60/min. [id number], Complete Assessment & Plan Assessment & Plan (1) Cardiomyopathy: Code(s): I42.9 - Cardiomyopathy, unspecified Category: Medical Qualifiers: Cardiomyopathy type: unspecified Qualified Code(s): I42.9 - Cardiomyopathy, unspecified Plan: In the last echocardiogram, LVEF 50-55%. It has been about 40% in the past. Could be from pacing induced. Previously, perfusion imaging was unremarkable. Clinically, he has got absolutely no angina. With regard to his concern for shortness of breath, unclear etiology. It seems there is already an order from PCP and he can complete that. Per patient, already improved. (2) Essential hypertension: Code(s): I10 - Essential (primary) hypertension Category: Medical Plan: Today's blood pressure is okay but home blood pressure is still in the 140s per patient. He is currently on carvedilol and lisinopril. Add amlodipine. (3) PAF (paroxysmal atrial fibrillation): Code(s): I48.0 - Paroxysmal atrial fibrillation Category: Medical Plan: Transient episode in the past on device check. Can monitor for now. No recent concerns. Plan Discussion Notes I discussed the patient's reported shortness of breath and noted that it has been improving over the past two weeks. I advised the patient to keep the appointment for the heart ultrasound ordered by the patient's regular doctor. We also reviewed the patient's elevated home blood pressure readings, which are in the 140s-150s. Hence we agreed to add Amlodipine to his BP medication. Patient was informed and verbally consented to the use of an ambient scribe for clinic note documentation during this visit. Medications: New amlodipine 5 mg PO DAILY 90 tabs 3RF Coding Level of Care Code Est Pt Level 4 (38782) Complex visit Add On G2211 Diagnoses Cardiomyopathy, unspecified type I42.9 Cardiomyopathy type: unspecified Essential hypertension I10 PAF (paroxysmal atrial fibrillation) I48.0 CPT Codes EKG - CPT: 20263-[id number], Complete ([id number])
[2025-04-05 09:33] VITALS: BP 124/68; PULSE 60; BMI 27.4
--- OUTSIDE RECORDS SUMMARY | 2025-04-05 10:53 | XMS_ITS | Clinical Summary ---
Author Organization [facility] Address [address] [facility] [address] [facility] [address] [place] [id number] Phone Care Team Providers Care Lighting Adviser Name Role Phone Yasmani Larson MD Primary [...] topic Medical Devices Not on file Insurance [facility] MEDICARE SUPPLEMENT MEDICARE PART A & B [facility] MEDICARE SUPPLEMENT MEDICARE PART A & B [facility] MEDICARE SUPPLEMENT MEDICARE PART A & B [facility] MEDICARE SUPPLEMENT MEDICARE PART A & B [facility] MEDICARE SUPPLEMENT MEDICARE PART A & B [facility] MEDICARE SUPPLEMENT MEDICARE PART A & B Care Teams Lighting Adviser Relationship Specialty Start Date End Date Yasmani Larson MD [address] [place] [address] [place] [address] PCP - General Internal Medicine 07/10/23 Additional Source Comments The information contained in this document represents components of the legal health record. It is not the complete legal health record.[facility]
--- OUTSIDE RECORDS SUMMARY | 2025-04-05 10:53 | XMS_ITS | Patient Health Record ---
Author Organization [facility] Address [address] [place] [address] Care Team Providers Care Repairer Controller Tester Name Role Phone Marsha (RETIRED) Yasmani CABRALES Primary Care Provide r Unavailable Santiago Garcia Unavailable [phone] Reason For Referral No Information Medications Medication [...] Problem Screening for malignant neoplasm of colon (336167045) Encounter for screening for malignant neoplasm of colon (Z12.11) Active confirmed Problem Screening for malignant neoplasm of rectum (985325942) Encounter for screening for malignant neoplasm of rectum (Z12.12) Active confirmed Problem Preprocedural examination (313342987937127) Preprocedural examination (Z01.818) Active confirmed Problem 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) 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 Plan Of Treatment Future Test Test Name Order Date COLONOSCOPY 03/20/2016 Insurance Providers Payer Name Payer Address Payer Phone Subscriber Number Group Number Insured Name Patient Relationship to Insured Coverage Start Date Coverage End Date MEDICARE OF [place] [address] [id number] ANA MARQUEZ Self - patient is the insured [employer] [address] [place] [address] [id number] ANA MARQUEZ Self - patient is the insured Medical (General) History Medical History History ICD Code Screening Colonoscopy, 2002- -- hyperplastic polyp, diverticulosis, internal hemorrhoids Hypertension NIDDM Prostate cancer with surgery as below--n o radiation treatments Pacemaker Denies SC,CVA,Lung disease,renal disease Colonoscopy in 07/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 Caban
== END 2025-04-05 09:58 | disposition home or self-care (01) ==
LOC: HO.HCS 09:29
PROVIDERS: PCP Internal Medicine; Visit Provider Internal Medicine
DX: I42.9 Cardiomyopathy, unspecified (principal); I10 Essential (primary) hypertension; I48.0 Paroxysmal atrial fibrillation
CPT/HCPCS: 93010; 99214; G2211

== ENCOUNTER → 2025-04-05 09:29 | Outpatient (BNVA) | payer MEDICARE, SELFPAY | PROVIDERS: PCP Internal Medicine; Visit Provider Internal Medicine | DX: I10 Essential (primary) hypertension (principal); I48.0 Paroxysmal atrial fibrillation; R06.02 Shortness of breath; Z87.891 Personal history of nicotine dependence; Z95.0 Presence of cardiac pacemaker | CPT/HCPCS: 93005; 99212 ==

== ENCOUNTER → 2025-05-10 11:12 | Outpatient (BNV) | payer MEDICARE, SELFPAY | PROVIDERS: Admitting Provider Hospitalist; Emergency Provider Emergency Medicine; Visit Provider Internal Medicine | DX: R94.31 Abnormal electrocardiogram [ECG] [EKG] (principal); Z95.0 Presence of cardiac pacemaker | CPT/HCPCS: 93010 ==

== ENCOUNTER → 2025-05-10 11:26 | Outpatient (BNV) | payer MEDICARE, SELFPAY | PROVIDERS: Emergency Provider Emergency Medicine; Visit Provider Radiology Diagnostic Radiology | DX: J18.9 Pneumonia, unspecified organism (principal) | CPT/HCPCS: 71045; 71275 ==

== ENCOUNTER → 2025-05-10 11:56 | Outpatient (BNV) | payer MEDICARE, SELFPAY | PROVIDERS: Emergency Provider Emergency Medicine; Visit Provider Hospitalist | DX: I50.9 Heart failure, unspecified (principal); I48.0 Paroxysmal atrial fibrillation | CPT/HCPCS: 99233 ==

== ENCOUNTER 2025-05-10 15:36 | Outpatient (BNV) | payer MEDICARE, SELFPAY | END 2025-05-11 07:00 | PROVIDERS: Admitting Provider Hospitalist; Emergency Provider Emergency Medicine; Visit Provider Internal Medicine | DX: I50.9 Heart failure, unspecified (principal) | CPT/HCPCS: 93306 ==

== ENCOUNTER → 2025-05-10 15:36 | Outpatient (BNV) | payer MEDICARE, SELFPAY | PROVIDERS: Admitting Provider Hospitalist; Emergency Provider Emergency Medicine; Visit Provider Internal Medicine | DX: I50.9 Heart failure, unspecified (principal); J10.1 Influenza due to other identified influenza virus with other respiratory manifestations; J18.9 Pneumonia, unspecified organism; J96.01 Acute respiratory failure with hypoxia | CPT/HCPCS: 99233 ==